=== PATIENT | female | born 1980 | race Caucasian/White ===

== ENCOUNTER → 2023-08-09 08:46 | Outpatient (BNVA) | payer OTHER, SELFPAY | PROVIDERS: PCP Internal Medicine; Visit Provider Physician Assistant Surgical ==

== ENCOUNTER 2023-09-13 15:52 | Outpatient (AMB) | payer OTHER, SELFPAY ==
[2023-09-13 08:29] VITALS: BMI 41.3
--- NOTE | 2023-09-13 08:29 | A.OFFVIS_ITS ---
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 She heard about our program from a friend. Her goal is to lose weight and achieve a healthy lifestyle. She reports first being concerned about her weight over the last 5 years, highest weight to date was 240. Current weight is 240.4 pounds with a BMI of 41.3. She has tried multiple methods of weight loss including fad diets without permanent results. She lives with her daughter. 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 She states that she is being laid off at the end of September and may lose her insurance She wakes at:?630 am, and goes to bed at?9-10 pm. Dinner is at 630 pm. Breakfast: cereal w skim milk or healthy choice meal AM snack: cheese stick w guacamole or humus Lunch: fruit PM snack: skip Dinner: out to dinner, grinder operator, sandwich After dinner: nachos Other snacks: ice cream Liquids: 60-80 oz Alcohol/marijuana/tobacco intake: 1-2 beers on the weekends, no cannabis, no tobacco Exercise: none, elliptical at home. no gym membership. GERD score: 0 PEÑA score: 3 ESS score: 2 QOL score: 48 PFSH Surgical History Hx of wisdom tooth extraction Hx of section Family History Paternal Aunt Thyroid cancer Non-Hodgkin lymphoma Paternal Grandmother Bladder cancer Social History Alcohol intake: current Alcohol intake frequency: other Alcohol type: beer and wine Comment: weekends Patient Tobacco Use Status: Never used Tobacco Physical Exam Vital Signs: BMI result Body Mass Index 41.3 Telehealth Telehealth Telehealth Platform: Telephone Location of provider rendering services: practice address Location of patient: address on file Patient Identification confirmed using: Name, : Yes Telehealth method: voice only Patient verbally consented to treatment: Yes Patient verbally consented to billing insurance company: Yes Patient informed of any privacy concerns related to visit: Yes Minutes spent on Phone/Video with Pt.: 30 Assessment & Plan Assessment & Plan (1) Morbid obesity: Code(s): E66.01 - Morbid (severe) obesity due to excess calories Category: Medical Plan: This is a?42 yo female who will start our SWL program to prepare for bariatric surgery.? Blood work, CXR, ECG, Abd US and UGI have been ordered. She is being scheduled for initial consultations. She will start SWL classes and watch the first three videos before her next appointment. 1. You have been given a paper with a link to our software aditya ([employer]) to generate an individualized nutritional and exercise plan specific for you. Please send me a screenshot of the plans you will generate Meal to include lean meat (beef, fish, pork, turkey, chicken), or sinhala yogurt, or egg whites, or beans with a salad with olive oil and fruits (berries, pears, apples, kiwi). Avoid salt, breads, potatoes, rice, pasta, desserts. 2. If you choose shakes, each shake would be drunk slowly, like coffee over a period of 2 hours. 3. If you choose bars, cut each bar in 4 pieces and eat each piece in 30min to make each bar last 2 hours. 4. I emphasized the importance of measuring accurately the food portion and measure it when serving the food on a plate 5. The meal portions include a specific number of forks of meat (protein) and salad. You always eat the meat portion but you can replace up to half of salad/vegetables portion with rice, potatoes or pasta, or a fruit ?if you like. The less you do it the better weight loss will be. 6. One full-size fork is what it can be scooped on the fork without falling aside and not what can be bit with the fork. Use regular forks like those you find in a typical restaurant. 7.? Please send me weight measurements from your body composition scale as soon as possible and then once a week. Always include your diet and exercise plan. The best time to weigh yourself is first thing in the morning after going to the bathroom. 8. The best choice for exercise would be elliptical at your home with a goal of burning approximately 300 calories per day or 2000 calories per week 9.?Goal is to lose at least 1.5-2lbs per week, and about 10% before surgery, which is about 24 pounds 10. Please follow the diet plan exactly without any change. If you don't like something about the plan or you feel hungry you need to communicate with me so I can help you revise the plan. My cell phone number to communicate with me by text is [phone] Patient is morbidly obese and is not considered stable at this time.?I spent a total of 70 minutes reviewing/updating records, examining the patient and counseling the patient on weight management as detailed above. Orders: Orders Insulin Today E66.01 - Morbid (severe) obesity due to excess calories Hemoglobin A1c Today E66.01 - Morbid (severe) obesity due to excess calories Lipid Panel Today E66.01 - Morbid (severe) obesity due to excess calories IRON PROFILE Today E66.01 - Morbid (severe) obesity due to excess calories Ferritin Today E66.01 - Morbid (severe) obesity due to excess calories US abdomen comp w elastography Today E66.01 - Morbid (severe) obesity due to excess calories Complete Blood Count Auto Diff Today E66.01 - Morbid (severe) obesity due to excess calories Comprehensive Met. Panel Today E66.01 - Morbid (severe) obesity due to excess calories Vitamin B12 and Folate Today E66.01 - Morbid (severe) obesity due to excess calories Zinc Today E66.01 - Morbid (severe) obesity due to excess calories C Reactive Protein Today E66.01 - Morbid (severe) obesity due to excess calories Vitamin B1 Today E66.01 - Morbid (severe) obesity due to excess calories Vitamin A Today E66.01 - Morbid (severe) obesity due to excess calories TSH reflex Free T4 Today E66.01 - Morbid (severe) obesity due to excess calories Vitamin D 25-OH Total Today E66.01 - Morbid (severe) obesity due to excess calories XR chest 2V Today E66.01 - Morbid (severe) obesity due to excess calories ECG 12 lead EKG Today E66.01 - Morbid (severe) obesity due to excess calories FL upper GI w air Today E66.01 - Morbid (severe) obesity due to excess calories Referrals Behavioral Health Referral E66.01 - Morbid (severe) obesity due to excess calories
== END 2023-09-13 17:01 | disposition home or self-care (01) ==
LOC: HO.HBS 15:52
PROVIDERS: PCP Internal Medicine; Visit Provider Physician Assistant Surgical
DX: E66.01 Morbid (severe) obesity due to excess calories (principal); Z68.41 Body mass index [BMI] 40.0-44.9, adult
CPT/HCPCS: 99205

== ENCOUNTER → 2023-09-13 15:52 | Outpatient (BNVA) | payer OTHER, SELFPAY | PROVIDERS: PCP Internal Medicine; Visit Provider Physician Assistant Surgical ==

== ENCOUNTER 2023-09-23 08:08 | Outpatient (REF) | payer OTHER, SELFPAY ==
--- NOTE | ~2023-09-23 | US_ITS ---
EXAMINATION: US COMPLETE ABDOMEN WITH LIVER ELASTOGRAPHY CLINICAL INFORMATION: Morbid obesity COMPARISON: None available. TECHNIQUE: Real-time imaging of the abdominal viscera. Noninvasive ultrasound liver fibrosis assessment is performed using Krystal ElastPQ point quantification shear wave elastography (pSWE) with a C5-2 MHz transducer. Multiple elastography samples are obtained. FINDINGS: PANCREAS: Visualized portions of pancreas are normal in appearance. ABDOMINAL AORTA: The proximal, middle, and distal aortic segments are normal in caliber. INFERIOR VENA CAVA: Visualized portions are normal. LIVER: The liver is normal in size. Liver contour is smooth. There is diffusely increased echogenicity of the liver. No intrahepatic biliary ductal dilatation identified. The right lobe measures 15 cm in length. The left lobe measures 9.7 cm in length. Portal flow is hepatopedal Shear wave liver elastography median stiffness is 1.8 m/s (reference: normal median stiffness is 1.3 m/s or less). IQR/median stiffness to assess sampling precision is 0.13 (reference: good quality data set is IQR/median stiffness of 0.15 or less). GALLBLADDER: Normal. The gallbladder is physiologically distended without evidence of stones, sludge, polyps, wall thickening or pericholecystic fluid. Negative sonographic Romero sign. COMMON BILE DUCT: Normal in caliber measuring 0.6 cm in diameter. RIGHT KIDNEY: Normal. No hydronephrosis. No renal calculi or focal parenchymal lesions. The kidney measures 11.5 cm in maximum dimension. LEFT KIDNEY: The left kidney is normal in size. Nodular mid pole cortex is nonspecific but most suggestive of a dromedary hump. The kidney measures 10.5 cm in maximum dimension. No renal calculi or hydronephrosis. SPLEEN: Normal. The spleen measures 9.6 cm in maximum dimension. FREE FLUID: None. US/US abdomen comp w elastography IMPRESSION: Liver elastography: Measurements are suggestive of compensated advanced chroniic liver disease but need further test for confirmation. REFERENCE: Society of Radiologists in Ultrasound Liver Stiffness Thresholds (2020): LIVER STIFFNESS THRESHOLDS: *Liver Stiffness equal or less than 1.3 m/s: High probability of being normal. *Liver Stiffness less than 1.7 m/s: In the absence of other known clinical signs, rules out compensated advanced chronic liver disease. *Liver Stiffness 1.7-2.1 m/s: Suggestive of compensated advanced chronic liver disease but need further test for confirmation. *Liver Stiffness over 2.1 m/s: Rules in compensated advanced chronic liver disease. *Liver Stiffness over 2.4 m/s: Suggestive of clinically significant portal hypertension. QUALITY OF DATA SET: *IQR/Median value equal or less than 0.15 implies a quality data set. *IQR/Median value over 0.15 implies a poor quality data set. SIGNIFICANT CHANGE FROM PRIOR EXAM: Significant change if liver stiffness measurement is 10% or greater from prior exam. OTHER CONSIDERATIONS: The stage of liver fibrosis may be overestimated in the setting of acute hepatitis, liver inflammation, elevated liver function tests, hepatic vascular congestion, obstructive cholestasis, non-fasting state, and infiltrative diseases such as amyloidosis and lymphoma. In some patients with NAFLD, the liver stiffness thresholds for compensated advanced chronic liver disease may be lower. In causes other than viral hepatitis and NAFLD, liver stiffness thresholds are not well established. Electronically signed by: Vijay Obrien MD 10/13/2023 07:57 AM EDT
--- NOTE | ~2023-09-23 | XR_ITS ---
EXAMINATION: XR CHEST CLINICAL INFORMATION: Preop chest x-ray for morbid obesity. COMPARISON: None available. TECHNIQUE: 2 views of the chest were obtained. FINDINGS: The cardiac, hilar, and mediastinal contours are normal. The lungs are clear bilaterally. No pleural effusions. Azygos fissure noted. No soft tissue or bony abnormalities. XR/XR chest 2V IMPRESSION: Normal chest. Electronically signed by: Marlo Shin MD 11/18/2023 04:36 PM EDT
--- NOTE | 2023-09-23 08:12 | ECG_ITS ---
Test Reason : E66.01 Blood Pressure : / mmHG Vent. Rate : 068 BPM Atrial Rate : 068 BPM P-R Int : 144 ms QRS Dur : 084 ms QT Int : 400 ms P-R-T Axes : 046 003 015 degrees QTc Int : 425 ms Normal sinus rhythm Normal ECG No previous ECGs available Referred By: David Hines Electronically Signed By:HUGO TOVAR MD
[2023-09-23 08:28] LABS: MANUAL DIFF FLAG NO
[2023-09-23 08:42] LABS: Basophils Absolute Auto 0.1 X10*3/uL (0.0-0.2); Basophils Percent Auto 0.6 % (0-2); Eosinophils Absolute Auto 0.1 X10*3/uL (0.0-0.4); Eosinophils Percent Auto 0.7 % (0-4); Hematocrit 40.9 % (37.0-47.0); Hemoglobin 13.4 g/dl (12.0-16.0); Imm Gran Abs Auto 0.04 X10*3/uL (0.00-0.03); Imm Gran Pct Auto 0.5 % (0.0-0.4); Lymphocytes Absolute Auto 2.1 X10*3/uL (1.2-4.9); Lymphocytes Percent Auto 25.4 % (20-40); Mean Corpuscular HGB Conc 32.8 g/dl (31.0-35.0); Mean Corpuscular Hemoglobin 30.1 pg (27.0-33.0); Mean Corpuscular Volume 91.9 fL (80.0-98.0); Mean Platelet Volume 10.9 fL (9.4-12.3); Monocytes Absolute Auto 0.7 X10*3/uL (0.1-1.2); Monocytes Percent Auto 7.8 % (2-11); Neutrophils Absolute Auto 5.5 x10*3/uL (2.0-8.3); Platelet Count 264 X10*3/uL (160-400); Red Blood Count 4.45 X10*6/uL (4.20-5.50); White Blood Count 8.4 X10*3/uL (4.8-10.8)
[2023-09-23 09:13] LABS: Estimated Average Glucose 97 mg/dL
[2023-09-23 09:32] LABS: Alanine Aminotransferase 32 U/L (0-31); Albumin Level 4.1 g/dL (3.5-5.0); Alkaline Phosphatase 75 U/L (39-117); Anion Gap 13 (12-20); Aspartate Amino Transferase 26 U/L (5-31); Bilirubin Total 0.6 mg/dL (0.0-1.0); Blood Urea Nitrogen 16 mg/dL (9-16); C Reactive Protein 3.08 mg/dL (< or = 0.50); Calcium 9.4 mg/dL (8.4-10.2); Carbon Dioxide 26 mmol/L (22-29); Chloride 106 mmol/L (96-108); Cholesterol 214 mg/dL (<200); Estimated Glomerular Filt Rate > 60; Glucose Random 93 mg/dL (60-115); HDL Cholesterol 78 mg/dL (>40); Iron 64 mcg/dL (30-160); LDL Cholesterol Calculated 108 mg/dL (<100); Percent Iron Saturation 18 % (15-50); Potassium 3.6 mmol/L (3.3-5.1); Sodium 141 mmol/L (135-145); Total Iron Binding Capacity 350 mcg/dL (228-428); Total Protein 7.5 g/dL (6.5-8.0); Triglycerides 141 mg/dL (<150); Unsaturated Iron Binding 286 ug/dL
[2023-09-23 10:14] LABS: Ferritin 143 ng/mL (10-250); Insulin 8 uU/mL (2-29); TSH reflex Free T4 3.14 uIU/mL (0.32-4.0); Vitamin D 25-OH Total 49.9 ng/mL (>30)
[2023-09-23 10:31] LABS: Folate 9.6 ng/mL (> or = 4.0); Vitamin B12 423 pg/mL (200-900)
[2023-09-27 16:04] LABS: Zinc 68 mcg/dL (60-130)
[2023-09-28 16:19] LABS: Vitamin A 48 mcg/dL (38-98)
[2023-09-30 13:24] LABS: Vitamin B1 10 nmol/L (8-30)
== END 2023-09-23 08:09 | disposition home or self-care (01) ==
LOC: HO.US 08:08
PROVIDERS: PCP Internal Medicine; Visit Provider Physician Assistant Surgical
DX: E66.01 Morbid (severe) obesity due to excess calories (principal); Z13.1 Encounter for screening for diabetes mellitus
CPT/HCPCS: 36415; 71046; 76700; 76981; 80053; 80061; 82306; 82607; 82728; 82746; 83036; 83525; 83540; 84425; 84443; 84590; 84630; 85025; 86140; 93005

== ENCOUNTER → 2023-09-23 08:12 | Outpatient (BNV) | payer OTHER, SELFPAY | PROVIDERS: PCP Internal Medicine; Visit Provider Internal Medicine Cardiovascular Disease | DX: E66.01 Morbid (severe) obesity due to excess calories (principal) | CPT/HCPCS: 93010 ==

== ENCOUNTER → 2023-09-23 08:29 | Outpatient (BNV) | payer OTHER, SELFPAY | PROVIDERS: PCP Internal Medicine; Visit Provider Radiology Diagnostic Radiology | DX: Z01.818 Encounter for other preprocedural examination (principal); E66.01 Morbid (severe) obesity due to excess calories | CPT/HCPCS: 71046 ==

== ENCOUNTER 2023-10-14 14:19 | Outpatient (AMB) | payer OTHER, SELFPAY ==
[2023-10-14 08:29] VITALS: BMI 40.4
--- NOTE | 2023-10-14 08:29 | A.OFFVIS_ITS ---
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 She was initially presenting to the [facility] on 08/09/2023 with a weight of 240.2 lb. Weight today is 235.6 lb with a BMI of 40.4. She has lost 4.6 lb or 1.9% total body weight loss. She states she is doing well. She is using the aditya Meal plan: premier protein rtd shake 1/2 7-9 shake 1/2 10-12 atkins bar1-3 another bar 4-6 meal 8 forks protein and 8 forks veg drinkin-48 oz Exercise plan: elliptical at home1-3 x per week [address] [facility] Surgical History Hx of wisdom tooth extraction Hx of section Family History Paternal Aunt Thyroid cancer Non-Hodgkin lymphoma Paternal Grandmother Bladder cancer Social History Alcohol intake: current Alcohol intake frequency: other Alcohol type: beer and wine Comment: weekends Patient Tobacco Use Status: Never used Tobacco Assessment & Plan Assessment & Plan (1) Morbid obesity: Code(s): E66.01 - Morbid (severe) obesity due to excess calories Category: Medical Plan: Making slow but steady progress. Patient has clearly identified areas that require improvement including her exercise consistency. She is following the meal plan without difficulty. We discussed strategies to improve her exercise consistency including using her elliptical Tuesday through Tuesday and then when she is staying at her boyfriend's house on the weekends incorporating an outdoor walking program tracking her calories with the use of the [employer] aditya. she states that she will attempt to make these changes. Encouraged to continue to text weekly with any questions or concerns. Follow-up in the office in approximately 4 weeks
== END 2023-10-14 14:20 | disposition home or self-care (01) ==
LOC: HO.HBS 14:19
PROVIDERS: PCP Internal Medicine; Visit Provider Physician Assistant Surgical
DX: E66.01 Morbid (severe) obesity due to excess calories (principal)
CPT/HCPCS: 99213

== ENCOUNTER → 2023-10-14 14:19 | Outpatient (BNVA) | payer OTHER, SELFPAY | PROVIDERS: PCP Internal Medicine; Visit Provider Physician Assistant Surgical ==

== ENCOUNTER 2023-11-23 08:32 | Outpatient (REF) | payer OTHER, SELFPAY ==
--- NOTE | ~2023-11-23 | FL_ITS ---
EXAMINATION: XR FLUOROSCOPY UPPER GI WITH AIR CLINICAL INFORMATION: Preoperative evaluation prior to bariatric surgery COMPARISON: None TECHNIQUE: Fluoroscopic air contrast upper GI examination was performed utilizing standard techniques with thin and thick barium and effervescent granules. Numerous spot images were obtained. FINDINGS: Dual and single contrast images of the esophagus demonstrate normal caliber, contour, and mucosal pattern. No evidence of stricture, mass, or ulcerations identified. Esophageal peristalsis is mildly disorganized. A very small type I hiatal hernia is present. Moderate gastroesophageal reflux is seen up to the midesophagus. Dual contrast and single contrast images of the stomach demonstrated normal contour and mucosal pattern without evidence of mass, ulceration, or other abnormality. Contrast freely passed into the gastric antrum and duodenal bulb without delay. Single and air-contrast images of the duodenal bulb demonstrate no abnormality. The duodenal sweep has a normal appearance, course, and mucosal fold appearance. The imaged proximal jejunum has a normal fold pattern and caliber. FLUOROSCOPY TIME: 3 minutes 20 seconds DOSE AREA PRODUCT: 2689 uGy-m2 (microgray-meter squared) FL/FL upper GI w air IMPRESSION: 1. Mildly disorganized esophageal peristalsis. 2. Very small type I hiatal hernia with moderate gastroesophageal reflux. This procedure was performed by Chicho Robertson PA-C, and supervised by Dr. Shin Electronically signed by: Marlo Shin MD 11/24/2023 12:48 PM EDT
== END 2023-11-23 08:33 | disposition home or self-care (01) ==
LOC: HO.XRAY 08:32
PROVIDERS: PCP Internal Medicine; Visit Provider Physician Assistant Surgical
DX: E66.01 Morbid (severe) obesity due to excess calories (principal)
CPT/HCPCS: 74246

== ENCOUNTER → 2023-11-23 08:34 | Outpatient (BNV) | payer OTHER, SELFPAY | PROVIDERS: PCP Internal Medicine; Visit Provider Radiology Diagnostic Radiology | DX: Z01.818 Encounter for other preprocedural examination (principal) | CPT/HCPCS: 74246 ==

== ENCOUNTER → 2023-11-23 13:27 | Outpatient (AMB) | payer OTHER, SELFPAY ==
--- NOTE | 2023-11-23 13:00 | A.OFFWM_ITS ---
Intake Intake Visit Reasons: VIDEO BH Intake Allergies No Known Allergies Allergy (Verified 08/09/23 09:47) PFSH Surgical History Hx of wisdom tooth extraction Hx of section Family History Paternal Aunt Thyroid cancer Non-Hodgkin lymphoma Paternal Grandmother Bladder cancer Social History Alcohol intake: current Alcohol intake frequency: other Alcohol type: beer and wine Comment: weekends Patient Tobacco Use Status: Never used Tobacco Behavioral Health Assessment Weight Management Therapy Therapy Notes Details PT is a years old F/M, who presents for a visit to complete BH assessment as part of surgical weight loss program. PT reports she has thought about surgery for a while, specially now her daughter is 7 and independent so she can focus more on herself. Today we covered part of assessment and patient will return on 12/12 to finish. Presenting Concerns Referral Source WMP-Provider. PT sees David Hines PA-C, started services on 09/13/23 Reason for referral Completion of behavioral health assessment as part of process for weight-loss surgery. Precipitating Event Obesity. Living Situation Current Living Situation Own At risk of losing current housing? No Satisfied with current living situation? Yes Comments Pt lives with her 7 y/o daughter and 2 dogs. Food/Weight/Diet Expectations of change Initial goal is to lose at least 1.5-2lbs per week, and about 10% before surgery, which is about 24 pounds. She hopes to Become mindful and take better care of herself. PT is implementing the following: Current meal plan: am shake, 2 bars, 1 meal (8F/8F) Exercise plan: Uses elliptical at home. Continue adjusting to meal plan on weekends. Usually does 2 meals on weekends. History/Relationship with food PT reports she doesn't have a bad relationship with food or uses food as a reward or for comfort. As a child she was never thought about portion control, it was more to eat what you are served and clear your place. Example of meals before starting the program: Breakfast: a banana or toast with peanut butter. [place] with avocado and everything seasoning. Lunch: take out or leftovers, example: 12inch tool grinder operator external. Dinner: chicken, rice, tacos. dessert: ice-cream Snacks: almonds, cheese sticks and wacamole Drinks/Liquids: coffee in the morning with sugar sometimes milk or cream. History/Relationship with weight Growing up she was never obese or skinny, and was always very comfortable with her weight. Exercise was never been a big part of her life, so this program has been a learning opportunity to adapt new habits and after the first month in the program now she has been consistent with exercise routine and meal plan. PT reports that when things get stressful she stops taking care of herself and in general she tends to lose weight very slowly. After her 7 years ago weight-loss has been harder harder, and in general her weight has fluctuated her whole life. In the last 10 years, the patient's Lowest weight was 177Lbs while doing WW, and highest 250Lbs after she gave . History/Relationship with dieting PT have done weight watchers before becoming a mom and went down to 177Lbs. Gym membership multiple times in her life. Circuit program Healthy aditya similar to WW Using Fitbit to keep up of her steps Multiple diets: Pierce Rivas (lost 7 Lbs in 2 months) Binge Eating0 Do you frequently eat large amounts of food in short periods of time, not feeling physically hungry? Yes Do you feel out of control when you eat a large amount of food in a short period of time? No Do you eat large amounts of food rapidly and typically alone? No Night Eating Do you wake up at least once during the night to eat? No If you wake up in the night, do you find that it is necessary to eat something in order to fall back asleep? No Do you have little or no appetite in the morning and feel very hungry in the evening, often overeating between dinner and when you go to bed? No Social History Family history and relationship Never . Single mother of 1 daughter. She has been in a relationship for about 2 months. She has a twin sister and on her early 40's she found her father and that she has 4 siblings on her dad's side. 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 Cultural/Ethnic information . 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 1. Little interest or pleasure in doing things: not at all 2. Feeling down, depressed, or hopeless: not at all 3. Trouble falling or staying asleep, or sleeping too much: not at all 4. Feeling tired or having little energy: not at all 5. Poor appetite or overeating: not at all 6. Feeling bad about yourself - or that you are a failure or have let yourself or your family down: not at all 7. Trouble concentrating on things, such as reading the newspaper or watching television: not at all 8. Moving or speaking so slowly that other people could have noticed. Or the opposite - being so fidgety or restless that you have been moving around a lot more than usual: not at all 9. Thoughts that you would be better off or of hurting yourself in some way: not at all Total score: 0 Depression Screening Interpretation: Negative (Scores from new PT pack. New one will be administered at next visit) Depression Screening Done: Yes Source: Developed by Drs. Remy Max, Norma Brunson, Carson Chavez and colleagues, with an educational debra from [employer]. Binge Eating Scale Group 1 A. I don't feel self-conscious about my wt. or body size when I'm with others. B. I feel concerned about how I look to others, but it normally does not make me fell disappointed with myself C. I do get self-conscious about my appearance and wt. which makes me feel disappointed in myself. D. I feel very self-conscious about my wt. and frequently I feel intense shame and disgust for myself. I try to avoid social contacts because of my self- consciousness. Response Group 1: B Group 2 A. I don't have any difficulty eating slowly in the proper manner. B. Although I seem to gobble down foods, I don't end up feeling stuffed because of eating to much. C. At times, I tend to eat quickly and then, I feel uncomfortably full afterwards. D. I have the habit of bolting down my food, without really chewing it. When this happens I usually feel uncomfortably stuffed because I've eaten to much. Response Group 2: A Group 3 A. I feel capable to control my eating urges when I want to. B. I feel like I have failed to control my eating more than the average person. C. I feel utterly helpless when it comes to feeling in control of my eating urges. D. Because I feel so helpless about controlling my eating I have become very desperate about trying to get control. Response Group 3: B Group 4 A. I don't have the habit of eating when I'm bored. B. I sometimes eat when I'm bored, but often I'm able to get busy and get my mind off food. C. I have a regular habit of eating when I'm bored, but occasionally, I can use some other activity to get my mind off eating. D. I have a strong habit of eating when I'm bored. Nothing seems to help me breath the habit. Response Group 4: A Group 5 A. I'm usually physically hungry when I eat something. B. Occasionally, I eat something on impulse even though I really am not hungry. C. I have the regular habit of eating foods, that I might not really enjoy, to satisfy a hungry feeling even though physically, I don't need the food. D. Although I'm not physically hungry, I get a hungry feeling in my mouth that only seems to be satisfied when I eat a food, like sandwich, that fills my mouth. Sometimes, when I eat the food to satisfy my mouth hunger, I then spit the food out so I won't gain weight. Response Group 5: B Group 6 A. I don't feel any guilt or self-hate after I overeat. B. After I overeat, occasionally I feel guilt or self-hate. C. Almost all the time I experience strong guilt or self-hate after I overeat. Response Group 6: A Group 7 A. I don't lose total control of my eating when dieting even after periods when I overeat. B. Sometimes when I eat a forbidden food on a diet, I feel like I blew it and eat even more. C. Frequently, I have the habit of saying to myself, I've blown it now, why not go all the way, when I overeat on a diet. When that happens I eat more. D. I have a regular habit of starting a strict diets for myself but I break the diets by going on an eating binge. My life seems to be either a feast or famine. Response Group 7: A Group 8 A. I rarely eat so much food that I feel uncomfortably stuffed afterwards. B. Usually about once a month, I each such a quantity of food, I end up feeling very stuffed. C. I have regular periods during the month when I eat large amounts of food, either at mealtime or at snacks. D. I eat so much food that I regularly feel quite uncomfortable after eating and sometimes a bit nauseous. Response Group 8: B Group 9 A. My level of calorie intake does not go up very high or go down very low on a regular basis. B. Sometimes after I overeat, I will try to reduce my caloric intake to almost nothing to compensate for the excess calories I've eaten. C. I have a regular habit of overeating during the night. It seems that my routine is not to be hungry in the morning but overeat in the evening. D. In my adult years, I have had week-long periods where I practically starve myself. This follows periods when I overeat. It seems I live a life of either feast or famine. Response Group 9: A Group 10 A. I usually am able to stop eating when I want to. I know when enough is enough. B. Every so often, I experience a compulsion to eat which I can't seem to control. C. Frequently, I experience strong urges to eat which I seem unable to control, but at other times I can control my eating urges. D. I feel incapable of controlling urges to eat. I have a fear of not being able to stop eating voluntarily. Response Group 10: A Group 11 A. I don't have any problem stopping eating when I feel full. B. I usually can stop eating when I feel full but occasionally overeat leaving me feeling uncomfortably stuffed. C. I have a problem stopping eating once I start and usually I feel uncomfortably stuffed after I eat a meal. D. Because I have a problem not being able to stop eating when I want, I sometimes have to induce vomiting to relieve my stuffed feeling. Response Group 11: B Group 12 A. I seem to eat just as much when I'm with others, Family social gatherings as when I'm by myself. B. Sometimes, when I'm with other persons, I don't eat as much as I want to eat because I'm self-conscious about my eating. C. Frequently, I eat only a small amount of food when others are present, because I'm very embarrassed about my eating. D. I feel so ashamed about overeating that I pick times to overeat when I know no one will see me. I feel like a closet eater. Response Group 12: A Group 13 A. I eat three meals a day with only an occasional between meal snack. B. I eat 3 meals a day, but I also normally snack between meals. C. When I am snacking heavily, I get in the habit of skipping regular meals. D. There are regular periods when I seem to be continually eating, with no planned meals. Response Group 13: B Group 14 A. I don't think much about trying to control unwanted eating urges. B. At least some of the time, I feel my thoughts are pre-occupied with trying to control my eating urges. C. I feel that frequently I spend much time thinking about how much I ate or about trying not to eat anymore. D. It seems to me that most of my waking hours are pre-occupied by thoughts about eating or not eating. I feel like I'm constantly struggling not to eat. Response Group 14: B Group 15 A. I don't think about food a great deal. B. I have strong craving for food but they last only for brief periods of time. C. I have days when I can't seem to think about anything else but food. D. Most of my days seem to be pre-occupied with thoughts about food. I feel like I live to eat. Response Group 15: B Group 16 A. I usually know whether or not I'm physically hungry. I take the right portion of food to satisfy me. B. Occasionally, I feel uncertain about knowing whether or not I'm physically hungry. A these times it's hard to know how much food I should take to satisfy me. C. Even though I might know how many calories I should eat, I don't have any i amrita what is a normal amount of food for me. Response Group 16: A Binge Eating Score: 8 Score less than 17 Minimal Risk Score between 18-26 Moderate Risk Score between 27-46 High Risk Assessment & Plan Assessment & Plan (1) Unspecified adjustment reaction: Code(s): F43.20 - Adjustment disorder, unspecified Plan PT will return on 12/13/23 at 10am, via Telehealth con continue assessment and PHQ-9 administered again. Telehealth Telehealth Telehealth Platform: [facility] Location of provider rendering services: other Location of patient: address on file Patient Identification confirmed using: Name, : Yes Telehealth method: video Patient verbally consented to treatment: Yes Patient verbally consented to billing insurance company: Yes Patient informed of any privacy concerns related to visit: Yes Minutes spent on Phone/Video with Pt.: 65 Coding Level of Care Code New Pt Tele Psy Diag Eval (01759) Patient Type New Diagnoses Unspecified adjustment reaction F43.20 Time Spent (min) 65 Comment Start time: 1:00pm, End time: 2:05pm
== END ==
PROVIDERS: PCP Internal Medicine; Visit Provider Counselor Mental Health
DX: F43.20 Adjustment disorder, unspecified (principal)
CPT/HCPCS: 90791

== ENCOUNTER 2023-11-29 10:09 | Day surgery (SDC) | payer OTHER, SELFPAY ==
--- NOTE | 2023-11-24 14:23 | HO.ANESPROP2 ---
Documented by User: Blanche Morales NP 11/24/23 14:23 HPI - Anesthesia Eval Consult details Narrative: 43yo F for Upper Endoscopy PMFSH Active Problems Active Problems: All Active Problems Morbid obesity (Acute) Family History Family History Paternal Aunt Thyroid cancer Non-Hodgkin lymphoma Paternal Grandmother Bladder cancer Surgical History Surgical History Hx of wisdom tooth extraction Hx of section Social History Social History Alcohol intake: current Alcohol intake frequency: holidays/special occasions only Alcohol type: beer and wine Comment: weekends Patient Tobacco Use Status: Never used Tobacco Have you been hit, kicked, punched, or otherwise hurt by someone within the past year? If so, by whom?: No Are you DNR?: No Advance Directives: No Advance Directives Information Provided: Yes Nutrition Risks: No Nutritional Risk Patient : No Meds Allergies Allergy/AdvReac Type Severity Reaction Status Date / Time No Known Allergies Allergy Verified 08/09/23 09:47 Home Medications ?Medication ?Instructions ?Recorded ?Confirmed ?Last Taken ?Type ferrous sulfate 325 mg (65 mg 325 mg PO DAILY 08/09/23 10/14/23 Unknown History iron) tablet (Feosol) norelgestromin 150 mcg-e.estradiol patch transdermal 08/09/23 10/14/23 Unknown History 35 mcg/24 hr weekly transderm patch (Xulane) Assessment and Plan Assessment Anesthesia Assessment: Chart Reviewed Documented by User: Jyothi Cordova MD 11/29/23 11:04 PMFSH Family History Family History Paternal Aunt Thyroid cancer Non-Hodgkin lymphoma Paternal Grandmother Bladder cancer Family history of problems with anesthesia: No Surgical History Surgical History Hx of wisdom tooth extraction Hx of section History of Problems with Anesthesia: No Social History Social History Alcohol intake: current Alcohol intake frequency: holidays/special occasions only Alcohol type: beer and wine Comment: weekends Patient Tobacco Use Status: Never used Tobacco Have you been hit, kicked, punched, or otherwise hurt by someone within the past year? If so, by whom?: No Are you DNR?: No Advance Directives: No Advance Directives Information Provided: Yes Nutrition Risks: No Nutritional Risk Patient : No Meds Allergies Allergy/AdvReac Type Severity Reaction Status Date / Time No Known Allergies Allergy Verified 08/09/23 09:47 Home Medications ?Medication ?Instructions ?Recorded ?Confirmed ?Last Taken ?Type ferrous sulfate 325 mg (65 mg 325 mg PO DAILY 08/09/23 10/14/23 Unknown History iron) tablet (Feosol) norelgestromin 150 mcg-e.estradiol patch transdermal 08/09/23 10/14/23 Unknown History 35 mcg/24 hr weekly transderm patch (Xulane) Exam Airway Mallampati Class: II TM Dist: >3cm Neck ROM: Full Heart: rrr Lungs: cta Assessment and Plan Final Anesthetic Review Family History of Problems with Anesthesia: No History of Problems with Anesthesia: No NPO: Yes ASA Class: II Final Preanesthetic Review: No Changes in Pt Med Stat, Meds/Allgs Chart Reviewed, Consent Obtained/Reviewed and Anes Risks/Benef Reviewed Patient Risk: Intermediate Procedure Risk: Low Anesthetic Plan Anesthetic Plan: MAC: Disposition: Standard PACU
[2023-11-29 10:18] VITALS: BP 139/83; PULSE 71; RESP 20; TEMP 36.9; O2SAT 98; BMI 40.2
[2023-11-29 10:29] LABS: UPreg QC Valid YES; Urine Pregnancy NEGATIVE (NEGATIVE)
[2023-11-29] MEDS: Lactated Ringers 1,000 ML 100 ML IVCONT (10:36)
--- NOTE | 2023-11-29 10:55 | MHC.SHP ---
Pre-Procedural Eval Section A - 24 Hr Update-Section A only Date of Service: 11/29/23 The patient is an INPATIENT: No The patient has been examined within 24 hours of the surgical procedure. The History & Physical has been completed within 30 days and I have reviewed it.: Yes Section B - Complete if H&P > 30 days Chief Complaint: Morbid (severe) obesity due to excess calories Relevant Family History (Specify if Yes): No Relevant Social History: None Present Medications: None Medical History: No relevant PMH History of Previous Operations: No relevant previous surgery Allergies: Allergies Allergy/AdvReac Type Severity Reaction Status Date / Time No Known Allergies Allergy Verified 08/09/23 09:47 Review of Systems Sugical H&P ROS: Negative: Constitution, Cardiovascular, Respiratory, Neurological, Psychiatric, Hem-Onc, Allergic/Immunologic, Gastrointestinal, Genitourinary, Musculoskeletal, Integumentary, Endocrine and Eyes/Ears/Nose/Throat Exam Surgical H&P Exam: Normal: HEENT, Normal: Heart, Normal: Lungs, Normal: Extremities, Normal: Abdomen, Normal: Skin and Normal: Neurological Plan Diagnosis/Plan: Unchanged (EGD to assess the stomach's anatomy. Risks of bleeding and perforation were discussed with the patient and she is in agreement with the plan) I have reviewed the history and physical and performed a pertinent physical examination on my patient. No changes have occurred unless specified. Time Spent With Patient Time: Total time managing care of this patient today ____ minutes.
--- NOTE | 2023-11-29 10:59 | P.BOP_ITS ---
Brief Operative Note Date of Service: 11/29/23 Pre-op diagnosis: Morbid obesity Post-op diagnosis: same Procedure: PROCEDURE DATE: 11/29/2023 PREOPERATIVE DIAGNOSIS: Morbid obesity POSTOPERATIVE DIAGNOSIS: ?Same as above. Patito endoscopy PROCEDURE: [id number] with biopsies Surgeon: Francois Lopez M.D.. Ph.D. Under Cutter: None ? Anesthesia: IV sedation Estimated blood loss: ?Minimal FINDINGS AND PROCEDURE: ? OPERATIVE INDICATIONS: ?The patient is a 43 year old female known to me who is interested in bariatric surgery. Based on this information I recommended an upper endoscopy to evaluate the stomach's anatomy. Risks and complications of the surgery were discussed with the patient in advance particularly the possibility of perforation or bleeding that may require surgical intervention. The patient understood the risks and was in agreement with the plan. ? PROCEDURE: After informed consent was obtained by the patient, the patient was ?transferred to the Operating Room and was placed in the supine position.? After successful induction of IV sedation, a mouth block was inserted and the patient was placed in the left lateral decubitus position. An upper endoscopy was performed next, the oropharynx and esophagus appeared within the normal limits. There was no hiatal hernia. The z-line was smooth. Two biopsies were obtained from the distal esophagus 2-3 cm proximal to the GE junction and two additional biopsies from the GE junction. The stomach was entered and it appeared to be of normal size. There was no gastritis. There was no stricture or ulcer. A biopsy was obtained from the gastric fundus and antrum. No significant bleeding was noted from any of the biopsy sites. Retroflexion of the scope revealed a normal GE junction. The scope was then advanced into the duodenum which appeared to be normal as well. At that point the duodenum ?and the stomach were decompressed and the scope was withdrawn from the patient's mouth. The patient extubated and was transferred in stable condition to the Recovery Room for further care. I was present and performed all steps of the procedure. There were no residents to assist with this case. Audie Lopez M.D., Ph.D. Surgeon: Miguel Lopez MD Anesthesia: MAC Was an Under Cutter used for this Procedure?: No Estimated blood loss (mL): 0 IV fluids (mL): 400 Urine output (mL): 0 (No [place] to record output) Pathology: other (1) antrum x1, 2) fundus x1, 3) GE junction x2, 4) distal esophagus x2) Condition: stable Disposition: PACU
[2023-11-29 11:53] VITALS: BP 117/99; PULSE 73; RESP 16; TEMP 36.6; O2SAT 99
[2023-11-29 12:08] VITALS: BP 133/71; PULSE 71; RESP 16; TEMP 36.2; O2SAT 96
== END 2023-11-29 12:42 | disposition home or self-care (01) ==
PROVIDERS: Nurse Practitioner; PCP Internal Medicine; Visit Provider Surgery
PROC: 0DJ08ZZ Inspection of Upper Intestinal Tract, Via Natural or Artificial Opening Endoscopic (ICD-10-PCS; CPT 43235; principal; 2023-11-29 12:20)
DX: E66.01 Morbid (severe) obesity due to excess calories (principal); Z68.41 Body mass index [BMI] 40.0-44.9, adult; Z79.899 Other long term (current) drug therapy; Z98.890 Other specified postprocedural states
CPT/HCPCS: 43239; 81025; 88305; 88313; 88342; J1100; J1596; J2003; J2250; J2704

== ENCOUNTER → 2023-11-29 10:09 | Outpatient (BNV) | payer OTHER, SELFPAY | PROVIDERS: PCP Internal Medicine; Visit Provider Surgery | DX: E66.813 Obesity, class 3 (principal); Z68.41 Body mass index [BMI] 40.0-44.9, adult | CPT/HCPCS: 43239 ==

== ENCOUNTER 2023-12-07 15:00 | Outpatient (AMB) | payer OTHER, SELFPAY ==
[2023-12-07 10:58] VITALS: BMI 38.9
--- NOTE | 2023-12-07 10:58 | MHC.OFFVISWM ---
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 She was initially presenting to the [facility] on 08/09/2023 with a weight of 240.2 lb. Weight today is 226.6 lb with a BMI of 38.9. She has lost 13.6 lb or 5.6% total body weight loss. She states she is doing well. She is using the aditya. Meal plan: premier protein rtd shake 11-1 atkins bar 3-5 meal 8 forks protein and 8 forks veg drinkin-48 oz Exercise plan: elliptical at home 6 x per week 400 adiel PFSH Surgical History Hx of wisdom tooth extraction Hx of section Family History Paternal Aunt Thyroid cancer Non-Hodgkin lymphoma Paternal Grandmother Bladder cancer Social History Alcohol intake: current Alcohol intake frequency: holidays/special occasions only Alcohol type: beer and wine Comment: weekends Patient Tobacco Use Status: Never used Tobacco Telehealth Telehealth Telehealth Platform: Telephone Location of provider rendering services: practice address Location of patient: address on file Patient Identification confirmed using: Name, : Yes Telehealth method: voice only Patient verbally consented to treatment: Yes Patient verbally consented to billing insurance company: Yes Patient informed of any privacy concerns related to visit: Yes Minutes spent on Phone/Video with Pt.: 20 Assessment & Plan Assessment & Plan (1) Obesity (BMI 30-39.9): Code(s): E66.9 - Obesity, unspecified Category: Medical Plan: Patient is making good progress. She may switch out her Atkins bar for a [place] yogurt if she wants she may add 1/2 bar. Discussed the importance of continuing exercise as she has been doing. Answered questions regarding surgery. She was enquiring about gastric bypass versus sleeve gastrectomy, thinking that she would prefer the gastric bypass but I encouraged her to discuss this with Dr. Lopez which she will do. We will have her return to the clinic in approximately 3 weeks with the understanding that if she continues to make progress, transfer to Dr. Lopez for continued preoperative planning.
== END 2023-12-07 15:31 | disposition home or self-care (01) ==
LOC: HO.HBS 15:24
PROVIDERS: PCP Internal Medicine; Visit Provider Physician Assistant Surgical
DX: E66.9 Obesity, unspecified (principal)
CPT/HCPCS: 99213; G2211

== ENCOUNTER → 2023-12-07 15:00 | Outpatient (BNVA) | payer OTHER, SELFPAY | PROVIDERS: PCP Internal Medicine; Visit Provider Physician Assistant Surgical ==

== ENCOUNTER → 2023-12-13 10:21 | Outpatient (BNVA) | payer OTHER, SELFPAY | PROVIDERS: PCP Internal Medicine; Visit Provider Counselor Mental Health ==

== ENCOUNTER → 2023-12-13 10:21 | Outpatient (AMB) | payer OTHER, SELFPAY ==
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
== END ==
LOC: HO.HBST 10:21
PROVIDERS: PCP Internal Medicine; Visit Provider Counselor Mental Health
DX: F43.20 Adjustment disorder, unspecified (principal)
CPT/HCPCS: 90837

== ENCOUNTER 2023-12-30 08:13 | Outpatient (AMB) | payer OTHER, SELFPAY ==
--- NOTE | 2023-12-30 12:46 | A.OFFVIS_ITS ---
VS Expanded 12/30/23 13:25 Height 5 ft 4 in Weight 221 lb 8 oz BMI 38.0 Body Fat % 49.5 Body Fat Mass 109.7 Fat Free Mass 112 Visceral Fat Rating 20 Body Water % 34.6 Body Water Mass 76.7 Basal Metabolic Rate/Score 1,453 Intake Visit Reasons: TV Follow Up SWL/Consult David Allergies No Known Allergies Allergy (Verified 12/30/23 12:46) Medication List - Last Reconciled 12/30/23 by Miguel Lopez MD ferrous sulfate (Feosol) 325 mg PO DAILY norelgestromin-ethin.estradiol 150-35 mcg/24 hr (Xulane) patches transdermal HPI HPI TV Follow Up SWL/Consult David: Details: Start time: 12.46pm, End time: 1.31pm ?I spent 40 minutes speaking with the patient on the phone plus an additional 5 minutes reviewing and updating records for a total of 45 minutes HPI Comments Details: Overall weight loss: 18.4lbs, or 7.66% TBWL Is doing one premade Premier, or Equate shake, 1.5 Atkins protein bar and one meal (8 forks of meat and 8 forks of salad or vegetables) on days Is doing one premade Premier, or Equate shake and two meals (6 forks of meat and 6 forks of salad or vegetables EACH) on weekends Exercise: is doing Elliptical 6 days per week for 400 calories PFSH Surgical History Hx of wisdom tooth extraction Hx of section Family History Paternal Aunt Thyroid cancer Non-Hodgkin lymphoma Paternal Grandmother Bladder cancer Social History Alcohol intake: current Alcohol intake frequency: holidays/special occasions only Alcohol type: beer and wine Comment: weekends Patient Tobacco Use Status: Never used Tobacco Telehealth Telehealth Telehealth Platform: Telephone Location of provider rendering services: practice address Location of patient: address on file Patient Identification confirmed using: Name, : Yes Telehealth method: voice only Patient verbally consented to treatment: Yes Patient verbally consented to billing insurance company: Yes Patient informed of any privacy concerns related to visit: Yes Minutes spent on Phone/Video with Pt.: 45 Assessment & Plan Assessment & Plan (1) Morbid obesity: Code(s): E66.01 - Morbid (severe) obesity due to excess calories Category: Medical Plan: 1. Plan for lap sleeve gastrectomy including upper GI endoscopy. All tests has been completed and reviewed and the patient is cleared for the surgery. ?If diaphragmatic or ventral hernias are present at time of surgery, these will be repaired laparoscopically as well. Risks and complications were discussed in detail including possible conversion to an open procedure, anastomotic leak, bleeding requiring transfusion, small bowel obstruction, , DVT and pulmonary embolism, cardiac, or pulmonary complications, as superintendent container terminal complications such as anastomotic ulcer, insufficient weight loss and vitamin deficiencies. I emphasized the importance of close follow-up, adherence to instructions and good communication. So far she has proven to be an excellent communicator and very compliant with all our directions accomplishing a great weight loss. I believe that she is an excellent candidate and she is ready. 2. The patient participated in a structured preoperative lifestyle intervention program supervised by a physician the 4 months preceding the surgical procedure. The lifestyle intervention included a structured nutritional plan with a specific daily protein intake goal, an exercise plan with a 2000 calorie burn weekly goal, weekly behavior modification guidance and completion of eight 1- hour online nutritional classes and passing successfully the corresponding quizzes. Adherence to preoperative care plan was demonstrated by completing an extensive preoperative work-up. Program participation was demonstrated by completing 4 visits with our medical team and by sharing weekly weight measurements weekly for 6 consecutive months via an approved body composition scale. Compliance to the lifestyle intervention was demonstrated by achieving a 18.4lbs weight-loss or 7.66% total body weight loss (TBWL). No medications were used to achieve this weight loss. In our published experience an over 7% preoperative TBWL, achieved by meeting the diet and exercise goals of our program improves surgical outcomes, reduces the potential for surgical complications, and predicts a statistically significant higher weight loss up to 6 years postoperatively. 3. Continue present nutritional and exercise plan 4. Send weight measurements weekly on Fridays
[2023-12-30 13:25] VITALS: BMI 38.0
--- OUTSIDE RECORDS SUMMARY | 2024-01-06 11:50 | XMS_ITS | Continuity of Care Document ---
Author Organization [facility] Primary Car e [place] Address [address] [place] [address]- Care Team Providers Care Soap Maker Name Role Phone Bonita GUAJARDO, Kayleigh Maria Primary Care Physician [phone] [facility] Date(s): 09/27/21 - 10/27/21 [facility] Care [place] [address] [place], [place] [address] Allergies, Adverse Reactions, Alerts No Known Allergies Immunizations Given and Recorded Vaccine Date Status Refusal Reason SARS-CoV-2 (COVID-19) mRNA BNT-162b2 vac 11/22/20 Recorded SARS-CoV-2 (COVID-19) mRNA BNT-162b2 vac 11/01/20 Recorded tetanus/diphtheria/pertussis, acel(Tdap) 1 08/11/16 Given 1Admin Note: VIS sheet given Medications Misc Rx Refills 0, Maintenance, VIT C, VIT D 400 IN WINTER, GUMMIE WITH BIOTIN, 08/24/21 16:40:00 EDT, Supply Start Date: 08/24/21 Status: Ordered traZODone 50 mg oral tablet 1, tablet, By Mouth, Daily at bedtime, # 90 tablet, Refills 1, Tot. Refills 0, Maintenance, 02/01/20 8:50:00 EST, Route to Pharmacy Electronically, [id number], 165.1, cm, 01/01/20 8:00:00 EST, Height Start Date: 02/01/20 Status: Ordered Tylenol 8 Hour Caplet = 1,300 mg, By Mouth, 0 Refills, Maintenance, 09/22/18 9:51:06 EDT Start Date: 09/22/18 Status: Ordered Problem List Condition Effective Dates Status Health Status Inform ant Obesity, Class III, BMI 40-4 9.9 (morbid obesity)(Confirmed) Active Elevated BP without diagnosi s of hypertension(Confirmed) Active Heart murmur(Confirmed) Active Ear infection(Confirmed) Active Encounter for weight management(Confirmed) Active Severe obesity(Confirmed) Active Tachycardia(Confirmed) Active Dry mouth(Confirmed) Active Social History Social History Type Response Smoking Status Never smoker entered on: 09/10/15 Sex Care Team Personnel Name: Kayleigh Mesa MD Address: [address] [place] [address]-
--- OUTSIDE RECORDS SUMMARY | 2024-01-06 11:50 | XMS_ITS | Continuity of Care Document ---
Author Organization [facility] Address [address] [place] [address]- Care Team Providers Care Shank Tapper Name Role Phone Kayleigh Mesa MD Primary Care Physician Encounter [facility] Date(s): 05/10/22 - 05/17/22 [facility] [address] [address]- Attending Physician: Not on Staff, Attending MD Referring Physician: Kayleigh Mesa MD Allergies, Adverse Reactions, Alerts No Known Allergies [...] EDT, Supply Start Date: 08/24/21 Status: Ordered Misc Rx Refills 0, Maintenance, takes supplemental iron for 1 week before menses, 04/07/22 15:02:00 EST, Supply Start Date: 04/07/22 Status: Ordered Tylenol 8 Hour Caplet = 1,300 mg, By Mouth, 0 Refills, Maintenance, 09/22/18 9:51:06 EDT Start Date: 09/22/18 Status: Ordered Xulane 150 mcg-35 mcg/24 hr transdermal film, extended release 1 patch, Topically, Every week, apply a new patch weekly for 3 weeks, remove for 1 week, then repeat cycle, # 9 each, 3 Refills, Maintenance, 05/10/22 9:19:00 EDT, [id number], Partial fill upon patient request if the prescription is f... Start Date: 05/10/22 Status: Ordered Problem List Condition Confirmation Course Effective Dates Status Health St atus Informant Obesity, Class III, BMI 40-49.9 (morbid obesity) Confirmed Active Elevated BP without diagnosis of hypertension Confirmed Active Heart murmur Confirmed Active History of COVID-19 Confirmed Active IBS (irritable bowel syndrome) Confirmed Active Heavy menses Confirmed Active Encounter for weight management Confirmed Active Severe obesity Confirmed Active Stress Confirmed Active Tachycardia Confirmed Active Dry mouth Confirmed Active Vital Signs Most recent to oldest [Reference Range]: 1 Height 165.1 cm (05/10/22 8:22 AM) Weight 110.3 kg (05/10/22 8:22 AM) Body Mass Index [18.5-24.99 kg/m2] 40.47 kg/m2 *>HHI* (05/10/22 8:22 AM) Blood Pressure [90-138/55-84 mm Hg] 104/ 60mm Hg (05/10/22 8:22 AM) Blood pressure sites Arm, left (05/10/22 8:22 AM) Dry Weight 110.3 kg (05/10/22 8:22 AM) Weight Obtained Via Standing scale (05/10/22 8:22 AM) Dry Weight Obtained Via Standing scale (05/10/22 8:22 AM) Social History Social History Type Response Smoking Status Never smoker entered on: 09/10/15 Sex Patient Care team information Care Team Personnel Name: Kayleigh Mesa MD Position: [facility] Primary Care Physician Member Role: PCP Address: Address: [address] [place] [address]- Name: Endy URIBE, Ama Position: [facility] OB RN Member Role: Primary Care Nurse Care Team Related Persons Name: LAMAR FIGUEROA Address: home [address] [facility] [address] [place] [address] Name: LINH FELTON Address: home [address] [place] [address] Name: JEREMI DELANEY Address: home [address] [place] [address] Name: REAL DELANEY Address: home [address] [place] [address]
--- OUTSIDE RECORDS SUMMARY | 2024-01-06 11:50 | XMS_ITS | Continuity of Care Document ---
Author Organization [facility] Address [address] [place] [address]- Care Team Providers Care Supervisor Decorating Name Role Phone Bonita GUAJARDO, Kayleigh Maria Primary Care Physician Encounter [facility] Date(s): 04/06/22 - 05/06/[address] [address] Allergies, Adverse Reactions, Alerts No Known Allergies [...] Date: 09/22/18 Status: Ordered Problem List Condition Confirmation Course Effective Dates Status Health St atus Informant Obesity, Class III, BMI 40-49.9 (morbid obesity) Confirmed Active Elevated BP without diagnosis of hypertension Confirmed Active Heart murmur Confirmed Active History of COVID-19 Confirmed Active IBS (irritable bowel syndrome) Confirmed Active Heavy menses Confirmed Active Encounter for weight management Confirmed Active Stress Confirmed Active Tachycardia Confirmed Active Dry mouth Confirmed Active Social History Social History Type Response Smoking Status Never smoker entered on: 09/10/15 Sex Patient Care team information Care Team Personnel Name: Kayleigh Mesa MD Position: [facility] Primary Care Physician Member Role: PCP Address: Address: [address] [place] [address]- Name: Ama Schumacher RN Position: [facility] OB RN Member Role: Primary Care Nurse Care Team Related Persons Name: LAMAR FIGUEROA Address: home [address] [facility] 3 [place] [address] Name: LINH FELTON Address: home [address] [place] [address] Name: JEREMI DELANEY Address: home [address] [place] [address] Name: REAL DELANEY Address: home [address] [place] [address]
--- OUTSIDE RECORDS SUMMARY | 2024-01-06 11:50 | XMS_ITS | Continuity of Care Document ---
Author Organization [facility] Primary Car e [place] Address [address] [place] [address]- Care Team Providers Care School Age Teacher Name Role Phone Kayleigh Mesa MD Primary Care Physician Encounter [facility] Date(s): 12/07/22 - 01/06/23 [facility] Care [place] [address] [place] [address]- Allergies, Adverse Reactions, Alerts No Known Allergies [...] each, 3 Refills, Maintenance, 05/10/22 9:19:00 EDT, [facility] #[id number], Partial fill upon patient request if the [...] Team Personnel Name: Kayleigh Mesa MD [facility] Phys[facility] - Primary Care Member Role: PCP Address: Address: [address] [place] [address]- Name: Ama Schumacher RN [facility] OB RN Member Role: Primary Care Nurse Care Team Related Persons Name: LAMAR FIGUEROA Address: [address] [address] Name: LINH FELTON Address: home [address] [place] [address] Name: JEREMI DELANEY Address: home [address] [place] [address] Name: REAL DELANEY Address: home [address] [place] [address]
--- OUTSIDE RECORDS SUMMARY | 2024-01-06 11:50 | XMS_ITS | Continuity of Care Document ---
Author Organization [facility] Address [address] [address]- Care Team Providers Care Elevator Constructor Hydraulic Name Role Phone Bonita GUAJARDO, Kayleigh Maria Primary Care Physician [id number] Date(s): 05/16/23 - 05/23/23 [facility] [address] [place], [place] [address] Attending Physician: Not on Staff, Attending MD Referring Physician: Pari Choi CNM Allergies, Adverse Reactions, Alerts No Known Allergies [...] for 1 week, then repeat cycle, # 3 patch, 14 Refills, Maintenance, 05/16/23 11:17:00 EDT, [facility] #[id number], Partial fill upon patient request if the prescription i... Start Date: 05/16/23 Status: Ordered Problem List Condition Confirmation Course [...] oldest [Reference Range]: 1 Height 165.1 cm (05/16/23 10:49 AM) Weight 111 kg (05/16/23 10:49 AM) Body Mass Index [18.5-24.99 kg/m2] 40.72 kg/m2 *>HHI* (05/16/23 10:49 AM) Blood Pressure [90-138/55-84 mm Hg] 122/ 74mm Hg (05/16/23 10:49 AM) Blood pressure sites Arm, right (05/16/23 10:49 AM) Dry Weight 111 kg (05/16/23 10:49 AM) Weight Obtained Via Standing scale (05/16/23 10:49 AM) Dry Weight Obtained Via Standing scale (05/16/23 10:49 AM) Social History Social History Type Response Smoking Status Never smoker entered on: 09/10/15 Sex Patient Care team information Care Team Personnel Name: Kayleigh Mesa MD Position: [facility] Physician - Primary Care Member Role: PCP Address: Address: [address] [place] [address]- Name: Endy URIBE, Ama Position: [facility] OB RN Member Role: Primary Care Nurse Care Team Related Persons Name: HENRY TIAGOVILMA Address: home [address] [facility] 3 [place] [address] Name: ILNH FELTON Address: home [address] [place] [address] Name: JEREMI DELANEY Address: home [address] [place] [address] Name: REAL DELANEY Address: home [address] [place] [address]
--- OUTSIDE RECORDS SUMMARY | 2024-01-06 11:50 | XMS_ITS | Continuity of Care Document ---
Author Organization [facility] Primary Car e [place] Address [address] [place] [address]- Care Team Providers Care Promotions Firm Accounts Manager Name Role Phone Rodrigo HUMMEL, Chuyita Campa Primary Care Physician [phone] Encounter [facility] [id number] Date(s): 01/02/20 - 02/01/20 [facility] Care [place] [address] [place], [place] [address] Allergies, Adverse Reactions, Alerts Substance Reaction Severity Status NKA Active Immunizations Given and Recorded Vaccine Date Status Refusal Reason tetanus/diphtheria/pertussis, acel(Tdap) 1 08/11/16 Given 1Admin Note: VIS sheet given Social History Social History Type Response Smoking Status Never smoker; Tobacc o user in household: No; Other: her baby's is a smoker but not in the house; entered on: 12/19/17 Sex
--- OUTSIDE RECORDS SUMMARY | 2024-01-06 11:50 | XMS_ITS | Continuity of Care Document ---
Author Organization [facility] Primary Car e [place] Address [address] [place] [address]- Care Team Providers Care Insurance Biller Name Role Phone Kayleigh Mesa MD Primary Care Physician Encounter [facility] Date(s): 11/30/22 - 12/30/22 [facility] Care [place] [address] [place] [address]- Allergies, Adverse Reactions, Alerts No Known Allergies [...] each, 3 Refills, Maintenance, 05/10/22 9:19:00 EDT, [facility] #[id number], Partial fill upon patient request if the [...] Team Personnel Name: Kayleigh Mesa MD Position: [facility] Physician - Primary Care Member Role: PCP Address: Address: [address] [place] [address]- Name: Ama Schumacher RN Position: [facility] OB RN Member Role: Primary Care Nurse Care Team Related Persons Name: LAMAR FIGUEROA Address: home [address] [address] Name: LINH FELTON Address: home [address] [place] [address] Name: JEREMI DELANEY Address: home [address] [place] [address] Name: REAL DELANEY Address: home [address] [place] [address]
--- OUTSIDE RECORDS SUMMARY | 2024-01-06 11:50 | XMS_ITS | Continuity of Care Document ---
Author Organization [facility] Primary [facility] e [place] Address [address] [place] [address]- Care Team Providers Care Automotive Exhaust Emissions Technician Name Role Phone Saurabh HUMMEL, Martha Clifford Primary Care Physician [phone] Encounter [facility] Date(s): 01/13/21 - 02/12/21 [facility] [address] [place], [place] [address] Allergies, Adverse Reactions, Alerts Substance Reaction Severity Status NKA Active Immunizations Given and Recorded Vaccine Date Status Refusal Reason SARS-CoV-2 (COVID-19) mRNA BNT-162b2 vac 11/22/20 Recorded SARS-CoV-2 (COVID-19) mRNA BNT-162b2 vac 11/01/20 Recorded tetanus/diphtheria/pertussis, acel(Tdap) 1 08/11/16 Given 1Admin Note: VIS sheet given Problem List Condition Effective Dates Status Health Status Inform ant Obesity, Class III, BMI 40-4 9.9 (morbid obesity)(Confirmed) Active Social History Social History Type Response Smoking Status Never smoker entered on: 09/10/15 Sex
--- OUTSIDE RECORDS SUMMARY | 2024-01-06 11:50 | XMS_ITS | Continuity of Care Document ---
Author Organization [facility] Primary [facility] e [place] Address [address] [place] [address]- Care Team Providers Care Commissioner Of Officials Name Role Phone Rodrigo HUMMEL, Chuyita Campa Primary Care Physician [phone] Encounter [facility] Date(s): 07/09/20 - 08/08/20 [facility] Care [place] [address] [place] [address]- Allergies, Adverse Reactions, Alerts Substance Reaction Severity [...]
--- OUTSIDE RECORDS SUMMARY | 2024-01-06 11:50 | XMS_ITS | Continuity of Care Document ---
Author Organization [facility] Primary Car e [place] Address [address] [place] [address]- Care Team Providers Care Technology Teacher Name Role Phone Saurabh HUMMEL, Martha Clifford Primary Care Physician Encounter [facility] Date(s): 03/11/21 - 04/10/21 [facility] [place] [address] [place], [place] [address] Allergies, Adverse Reactions, Alerts No Known Allergies Immunizations Given and Recorded Vaccine Date Status Refusal Reason SARS-CoV-2 (COVID-19) mRNA BNT-162b2 vac 11/22/20 Recorded SARS-CoV-2 (COVID-19) mRNA BNT-162b2 vac 11/01/20 Recorded tetanus/diphtheria/pertussis, acel(Tdap) 1 08/11/16 Given 1Admin Note: VIS sheet given Problem List Condition Effective Dates Status Health Status Inform ant Obesity, Class III, BMI 40-4 9.9 (morbid obesity)(Confirmed) Active Severe obesity(Confirmed) Active Social History Social History Type Response Smoking Status Never smoker entered on: 09/10/15 Sex
--- OUTSIDE RECORDS SUMMARY | 2024-01-06 11:50 | XMS_ITS | Continuity of Care Document ---
Author Organization [facility] Address [address] [facility]. [address] [place] [address]- Care Team Providers Care Criminal Justice Program Director Name Role Phone Bonita GUAJARDO, Kayleigh Maria Primary Care Physician Encounter [facility] Date(s): 05/16/23 - 06/15/23 [facility] [address] [place], [place] [address] Attending Physician: Admadrianne, Page Admitting Physician: Admtr, Page Referring Physician: Admtr, Ar8 Allergies, Adverse Reactions, Alerts No Known Allergies [...] patch, 14 Refills, Maintenance, 05/16/23 11:17:00 EDT, [id number], Partial fill upon patient request if the [...] Team Personnel Name: Kayleigh Mesa MD Position: [facility] Physician - Primary Care Member Role: PCP Address: Address: [address] [place] [address]- Name: Ama Schumacher RN Position: [facility] OB RN Member Role: Primary Care Nurse Care Team Related Persons Name: LAMAR FIGUEROA Address: home [address] [facility] 3 [place] [address] Name: LINH FELTON Address: home [address] [place] [address] Name: JEREMI DELANEY Address: home [address] [place] [address] Name: REAL DELANEY Address: home [address] [place] [address]
--- OUTSIDE RECORDS SUMMARY | 2024-01-06 11:50 | XMS_ITS | Continuity of Care Document ---
Author Organization [facility] Primary [facility] [place] Address [address] [place] [address]- Care Team Providers Care Pilot Steam Yacht Name Role Phone Bonita GUAJARDO, Kayleigh Maria Primary Care Physician [phone] Encounter [facility] Date(s): 08/25/23 - 09/24/23 [facility] [place] [address] [place] [address]- Allergies, Adverse Reactions, Alerts No Known Allergies Immunizations Given and Recorded Vaccine Date Status Refusal Reason SARS-CoV-2 (COVID-19) mRNA BNT-162b2 vac 11/22/20 Recorded SARS-CoV-2 (COVID-19) mRNA BNT-162b2 vac 11/01/20 Recorded tetanus/diphtheria/pertussis, acel(Tdap) 1 08/11/16 Given 1Admin Note: VIS sheet given Medications Misc Rx Refills 0, Maintenance, VIT C, VIT D 400 IN WINTER, GUMMIE WITH BIOTIN and COLLAGEN, 08/24/21 16:40:00 EDT, Supply Start Date: 08/24/21 [...] patch, 14 Refills, Maintenance, 05/16/23 11:17:00 EDT, [facility][id number], Partial fill upon patient request if the prescription i... Start Date: 05/16/23 Status: Ordered Problem List Condition Confirmation Course Effective Dates Status Health St atus Informant Obesity, Class III, BMI 40-49.9 (morbid obesity) Confirmed Active Elevated BP without diagnosis of hypertension Confirmed Active FHx: rheumatoid arthritis Confirmed Active Heart murmur Confirmed Active History of COVID-19 Confirmed Active Heavy menses Confirmed Active Encounter for health maintenance examination with abnormal findings Confirmed Active Stress Confirmed Active Tachycardia Confirmed Active Social History Social History Type Response Smoking Status Never smoker entered on: 09/10/15 Sex Patient Care team information Care Team Personnel Name: Kayleigh Mesa MD Position: [facility] Physician - Primary Care Member Role: PCP Address: Address: [address] [place] [address]- Name: Ama Schumacher RN Position: [facility] OB RN Member Role: Primary Care Nurse Care Team Related Persons Name: LAMAR FIGUEROA Address: home [address] [address] Name: LINH FELTON Address: home [address] [place] [address] Name: JEREMI DELANEY Address: home [address] [place] [address] Name: REAL DELANEY Address: home [address] [place] [address]
--- OUTSIDE RECORDS SUMMARY | 2024-01-06 11:50 | XMS_ITS | Continuity of Care Document ---
Author Organization [facility] Primary Car e [place] Address [address] [place] [address]- Care Team Providers Care Kitchen Mechanic Name Role Phone Kayleigh Mesa MD Primary Care Physician [phone] Encounter [facility] Date(s): 12/02/22 - 01/01/23 [facility] Care [place] [address] [place] [address]- Allergies, Adverse Reactions, Alerts No Known Allergies [...] each, 3 Refills, Maintenance, 05/10/22 9:19:00 EDT, [facility][id number], Partial fill upon patient request if the [...] Team Personnel Name: Kayleigh Mesa MD Position: [facility] Physician - Primary Care Member Role: PCP Address: Address: [address] [place] [address]- Name: Ama Schumacher RN Position: [facility] OB RN Member Role: Primary Care Nurse Care Team Related Persons Name: LAMAR FIGUEROA Address: home [address] [address] Name: LINH FELTON Address: home [address] [place] [address] Name: JEREMI DELANEY Address: home [address] [place] [address] Name: REAL DELANEY Address: home [address] [place] [address]
--- OUTSIDE RECORDS SUMMARY | 2024-01-06 11:50 | XMS_ITS | Continuity of Care Document ---
Author Organization [facility] Primary Car e [place] Address [address] [place] [address]- Care Team Providers Care Charge Master Specialist Name Role Phone Rodrigo HUMMEL, Chuyita Campa Primary Care Physician Encounter [facility] Date(s): 07/07/20 - 08/06/20 [facility] Care [place] [address] [place] [address]- Allergies, Adverse Reactions, Alerts Substance Reaction Severity [...]
--- OUTSIDE RECORDS SUMMARY | 2024-01-06 11:50 | XMS_ITS | Continuity of Care Document ---
Author Organization [facility] Primary Car e [place] Address [address] [place] [address]- Care Team Providers Care Patient Insurance Clerk Name Role Phone Sauarbh HUMMEL, Martha Clifford Primary Care Physician [phone] Encounter [facility] Date(s): 04/30/21 - 07/26/21 [facility] [place] [address] [place], [place] [address] Attending Physician: Graham Chapman MD, Deja Allergies, Adverse Reactions, Alerts No Known Allergies [...]
--- OUTSIDE RECORDS SUMMARY | 2024-01-06 11:50 | XMS_ITS | Continuity of Care Document ---
Author Organization [facility] Primary [facility] [place] Address [address] [place] [address]- Care Team Providers Care Joint Finisher Name Role Phone Kayleigh Mesa MD Primary Care Physician [id number] Date(s): 10/06/21 - 02/03/22 [facility] Care [place] [address] [place] [address]- Attending Physician: Kayleigh Mesa MD Allergies, Adverse Reactions, [...] 02/01/20 8:50:00 EST, Route to Pharmacy Electronically, [id number], 165.1, cm, 01/01/20 8:00:00 EST, Height Start [...] hypertension Confirmed Active Heart murmur Confirmed Active Ear infection Confirmed Active Encounter for weight management Confirmed Active Severe obesity Confirmed Active Tachycardia Confirmed Active Dry mouth Confirmed Active Social History Social History Type Response Smoking Status Never smoker entered on: 09/10/15 Sex Patient Care team information Care Team Personnel Name: Kayleigh Mesa MD Position: [facility] Primary Care Physician Member Role: PCP Address: Address: [address] [place] [address]- Name: Endy RN, Ama Position: [facility] OB RN Member Role: Primary Care Nurse Care Team Related Persons Name: LAMAR FIGUEROA Address: home [address] [address] Name: LINH FELTON Address: home [address] [place] [address] Name: JEREMI DELANEY Address: home [address] [place] [address] Name: REAL DELANEY Address: home [address] [place] [address]
--- OUTSIDE RECORDS SUMMARY | 2024-01-06 11:50 | XMS_ITS | Continuity of Care Document ---
Author Organization [facility] Primary Car e [place] Address [address] [place] [address]- Care Team Providers Care Washing Machine Loader Name Role Phone Bonita GUAJARDO, Kayleigh Maria Primary Care Physician [phone] Encounter [facility] Date(s): 10/07/21 - 11/06/21 [facility] [place] [address] [place], [place] [address] Allergies, Adverse Reactions, Alerts No Known Allergies [...] 02/01/20 8:50:00 EST, Route to Pharmacy Electronically, [facility] 99669, 165.1, cm, 01/01/20 8:00:00 EST, Height Start [...] Team Personnel Name: Kayleigh Mesa MD Address: [address] [place] [address]
--- OUTSIDE RECORDS SUMMARY | 2024-01-06 11:50 | XMS_ITS | Continuity of Care Document ---
Author Organization [facility] Primary Car e [place] Address [address] [place] [address]- Care Team Providers Care Financial Risk Manager Name Role Phone Bonita GUAJARDO, Kayleigh Maria Primary Care Physician [phone] Encounter [facility] Date(s): 10/16/21 - 11/15/21 [facility] Care [place] [address] [place], [place] [address] Allergies, Adverse Reactions, Alerts No Known Allergies [...] 02/01/20 8:50:00 EST, Route to Pharmacy Electronically, [id number], 165.1, cm, 01/01/20 8:00:00 EST, Height Start [...] on: 09/10/15 Sex Patient Care team information Personnel Name: Bonita GUAJARDO, Kayleigh Maria Address: Address: [address] [place] [id number]
--- OUTSIDE RECORDS SUMMARY | 2024-01-06 11:50 | XMS_ITS | Continuity of Care Document ---
Author Organization [facility] Address [address] [address]- Care Team Providers Care Clipper Automatic Name Role Phone Bonita GUAJARDO, Kayleigh Maria Primary Care Physician [phone] Encounter [facility] Date(s): 10/03/23 - 11/02/23 [facility] [address] [place], [place] [address] Attending Physician: AdmPage silver Admitting Physician: AdmtrPage Referring Physician: Admtr, Ar8 Allergies, Adverse Reactions, Alerts No Known Allergies Immunizations Given and Recorded Vaccine Date Status Refusal Reason SARS-CoV-2 (COVID-19) mRNA BNT-162b2 vac 11/22/20 Recorded SARS-CoV-2 (COVID-19) mRNA BNT-162b2 vac 11/01/20 Recorded tetanus/diphtheria/pertussis, acel(Tdap) 1 08/11/16 Given 1Admin Note: VIS sheet given Medications Estrace Vaginal Cream 0.1 mg/g See Instructions, 2 grams at night for two weeks, then 2 grams twice a week at night., # 42.5 Gm, 1Refills, Maintenance, 10/20/23 10:15:00 EDT, [facility][id number], Partial fill upon patientrequest if the prescription is for a schedule II o... Start Date: 10/20/23 Status: Ordered Misc Rx Refills 0, Maintenance, VIT C, [...] patch, 14 Refills, Maintenance, 05/16/23 11:17:00 EDT, [facility] #[id number], Partial fill upon patient request if the prescription i... Start Date: 05/16/23 Status: Ordered Problem List Condition Confirmation Course Effective Dates Status Health St atus Informant Obesity, Class III, BMI 40-49.9 (morbid obesity) Confirmed Active Elevated BP without diagnosis of hypertension Confirmed Active FHx: rheumatoid arthritis Confirmed Active Heart murmur Confirmed Active History of COVID-19 Confirmed Active Heavy menses Confirmed Active Obese class II Confirmed Active Encounter for health maintenance examination with abnormal findings Confirmed Active Stress Confirmed Active Tachycardia Confirmed Active Social History Social History Type Response Smoking Status Never smoker entered on: 09/10/15 Sex Patient Care team information Care Team Personnel Name: Kayleigh Mesa MD Position: [facility] Physician - Primary Care Member Role: PCP Address: Address: [address] [place] [address]- Name: Ama Schumacher RN Position: [facility] OB RN Member Role: Primary Care Nurse Care Team Related Persons Name: LAMAR FIGUEROA Address: home [address] [address] Name: LINH FELTON Address: home [address] [place] [address] Name: JEREMI DELANEY Address: home [address] [place] [address] Name: REAL DELANEY Address: home [address] [place] [address]
--- OUTSIDE RECORDS SUMMARY | 2024-01-06 11:50 | XMS_ITS | Continuity of Care Document ---
Author Organization [facility] Primary Car e [employer] Address [address] [place] [address]- Care Team Providers Care Dormitory Supervisor Name Role Phone Kayleigh Mesa MD Primary Care Physician [phone] Encounter [facility] Date(s): 04/13/22 - 05/13/22 [facility] Care [place] [address] [place] [address]- Allergies, Adverse Reactions, Alerts No Known Allergies [...] each, 3 Refills, Maintenance, 05/10/22 9:19:00 EDT, [facility] #[id number], Partial fill upon patient request if the [...] Team Personnel Name: Kayleigh Mesa MD Position: [facility] Primary Care Physician Member Role: PCP Address: Address: [address] [place] [address]- Name: Ama Schumacher RN Position: [facility] OB RN Member Role: Primary Care Nurse Care Team Related Persons Name: LAMAR FIGUEROA Address: home [address] [address] Name: LINH FELTON Address: home [address] [place] [address] Name: JEREMI DELANEY Address: home [address] [place] [address] Name: REAL DELANEY Address: home [address] [place] [address]
--- OUTSIDE RECORDS SUMMARY | 2024-01-06 11:50 | XMS_ITS | Continuity of Care Document ---
Author Organization [facility] n[facility] Address [address] [facility], [address] [place] [address]- Care Team Providers Care Russian Language Professor Name Role Phone Bonita GUAJARDO, Kayleigh Maria Primary Care Physician En[id number] Date(s): 03/18/22 - 04/17/22 [facility] Emeliarnold PastranaJimdos [facility] [address] [facility], 4th [place] [address]- Allergies, Adverse Reactions, Alerts No Known Allergies [...] Care team information Care Team Personnel Name: Bonita GUAJARDO, Kayleigh Maria Position: [facility] Primary Care Physician Member Role: PCP Address: Address: [address] [place] [address]- Name: Ama Schumacher RN Position: [facility] OB RN Member Role: Primary Care Nurse Care Team Related Persons Name: LAMAR FIGUEROA Address: home [address] [facility] 3 [place] [address] Name: LINH FELTON Address: home [address] [place] [address] Name: JEREMI DELANEY Address: home [address] [place] [address] Name: REAL DELANEY Address: home [address] [place] [address]
--- OUTSIDE RECORDS SUMMARY | 2024-01-06 11:51 | XMS_ITS | Continuity of Care Document ---
Author Organization [facility] Primary Car e [place] Address [address] [place] [address]- Care Team Providers Care Malt Specifications Control Assistant Name Role Phone Kayleigh Mesa MD Primary Care Physician Encounter [facility] Date(s): 04/13/22 - 05/13/22 [facility] Care [place] [address] [place] [address]- Allergies, Adverse Reactions, Alerts No Known Allergies [...] each, 3 Refills, Maintenance, 05/10/22 9:19:00 EDT, [facility] #[id number], Partial fill upon patient request if the [...] Team Personnel Name: Kayleigh Mesa MD Position: [facility] Primary Care Physician Member Role: PCP Address: Address: [address] [place] [address]- Name: Ama Schumacher RN Position: [facility] OB RN Member Role: Primary Care Nurse Care Team Related Persons Name: LAMAR FIGUEROA Address: home [address] [address] Name: LINH FELTON Address: home [address] [place] [address] Name: JEREMI DELANEY Address: home [address] [place] [address] Name: REAL DELANEY Address: home [address] [place] [address]
--- OUTSIDE RECORDS SUMMARY | 2024-01-06 11:51 | XMS_ITS | Continuity of Care Document ---
Author Organization [facility] Primary [facility] e [place] Address [address] [place] [address]- Care Team Providers Care Semaphore Operator Name Role Phone Bonita GUAJARDO, Kayleigh Maria Primary Care Physician Encounter [facility] Date(s): 09/23/23 - 10/23/23 [facility] Care [place] [address] [place] [address]- Allergies, Adverse Reactions, Alerts No Known Allergies [...] 42.5 Gm, 1Refills, Maintenance, 10/20/23 10:15:00 EDT, [id number], Partial fill upon patientrequest if the prescription [...] patch, 14 Refills, Maintenance, 05/16/23 11:17:00 EDT, [facility] #[id number], Partial fill upon patient request if the [...] Personnel Name: Bonita GUAJARDO, Kayleigh Maria Position: [facility] Physician - Primary Care Member Role: PCP Address: Address: [address] [place] [address]- Name: Ama Schumacher RN Position: [facility] OB RN Member Role: Primary Care Nurse Care Team Related Persons Name: LAMAR FIGUEROA Address: home [address] [address] Name: LINH FELTON Address: home [address] [place] [address] Name: JEREMI DELANEY Address: home [address] [place] [address] Name: REAL DELANEY Address: home [address] [place] [address]
--- OUTSIDE RECORDS SUMMARY | 2024-01-06 11:51 | XMS_ITS | Continuity of Care Document ---
Author Organization [facility] e [place] Address [address] [place] [address]- Care Team Providers Care Senior Quality Control Inspector Name Role Phone Bonita GUAJARDO, Kayleigh Maria Primary Care Physician [phone] [facility] Date(s): 08/12/23 - 09/11/23 [facility] 40 [place], [place] [address] Attending Physician: Page Petersen Admitting Physician: Page Petersen Referring Physician: AdmtrPage Allergies, Adverse Reactions, Alerts No Known Allergies [...] patch, 14 Refills, Maintenance, 05/16/23 11:17:00 EDT, [facility] #[id number], Partial fill upon patient request if the [...] Personnel Name: Bonita GUAJARDO, Kayleigh Maria Position: [facility] Physician - Primary Care Member Role: PCP Address: Address: [address] [place] [address]- Name: Ama Schumacher RN Position: [facility] OB RN Member Role: Primary Care Nurse Care Team Related Persons Name: LAMAR FIGUEROA Address: home [address] [facility] 3 [place] [address] Name: LINH FELTON Address: home [address] [place] [address] Name: JEREMI DELANEY Address: home [address] [place] [address] Name: REAL DELANEY Address: home [address] [place] [address]
--- OUTSIDE RECORDS SUMMARY | 2024-01-06 11:51 | XMS_ITS | Continuity of Care Document ---
Author Organization [facility] Primary Car e [place] Address [address] [place] [address]- Care Team Providers Care Soda Dry House Operator Name Role Phone Bonita GUAJARDO, Kayleigh Maria Primary Care Physician Encounter [facility] Date(s): 01/05/22 - 02/04/22 [facility] Care [place] [address] [place] [address]- Allergies, Adverse Reactions, Alerts No Known Allergies [...] EDT, Supply Start Date: 08/24/21 Status: Ordered Plan B One-Step 1.5 mg oral tablet 1.5 mg, 1, tablet, By Mouth, Once, # 1 tablet, Refills 0, Tot. Refills 0, Soft Stop, 02/04/22 12:11:00 EST, Route to Pharmacy Electronically, [facility] #[id number], Partial fill upon patient request if the prescription is for a schedule II opioi... Start Date: 02/04/22 Status: Ordered Tylenol 8 Hour Caplet = 1,300 mg, By Mouth, 0 Refills, Maintenance, 09/22/18 9:51:06 EDT Start Date: 09/22/18 Status: Ordered ulipristal 30 mg oral tablet 1 tablet = 30 mg, By Mouth, Once, # 1 tablet, 0 Refills, Soft Stop, 02/04/22 14:01:00 EST, Tablet, [id number], Partial fill upon patient request if the prescription is for a scheduleII opioid drug., 165.1, cm, 02/04/22 13:13:00 EST,... Start Date: 02/04/22 Status: Ordered Problem List Condition Confirmation Course Effective Dates Status H ealth Status Informant Obesity, Class III, BMI 40-49.9 (morbid obesity) Confirmed Active Elevated BP without diagnosis of hypertension Confirmed Active Emergency contraception Confirmed Active Heart murmur Confirmed Active History of COVID-19 Confirmed Active IBS (irritable bowel syndrome) Confirmed Active Encounter for weight management Confirmed Active Encounter for health maintenance examination Confirmed Active Severe obesity Confirmed Active Stress Confirmed Active Tachycardia Confirmed Active Dry mouth Confirmed Active Social History Social History Type Response Smoking Status Never smoker entered on: 09/10/15 Sex Patient Care team information Care Team Personnel Name: Kayleigh Mesa MD Position: [facility] Primary Care Physician Member Role: PCP Address: Address: [address] [place] [address]- Name: Endy URIBE, Ama Position: [facility] OB RN Member Role: Primary Care Nurse Care Team Related Persons Name: LAMAR FIGUEROA Address: home [address] [address] Name: LINH FELTON Address: home [address] [place] [address] Name: JEREMI DELANEY Address: home [address] [place] [address] Name: REAL DELANEY Address: home [address] [place] [address]
--- OUTSIDE RECORDS SUMMARY | 2024-01-06 11:51 | XMS_ITS | Continuity of Care Document ---
Author Organization [facility] Primary Car e [place] Address [address] [place] [address]- Care Team Providers Care Bath Mixer Name Role Phone Bonita GUAJARDO, Kayleigh Maria Primary Care Physician [phone] Encounter [facility] Date(s): 12/29/21 - 01/28/22 [facility] Care [place] [address] [place], [place] [address] Allergies, Adverse Reactions, Alerts No [...] 02/01/20 8:50:00 EST, Route to Pharmacy Electronically, [facility], 165.1, cm, 01/01/20 8:00:00 EST, Height Start [...] Team Personnel Name: Kayleigh Mesa MD Position: [facility] Primary Care Physician Member Role: PCP Address: Address: [address] [place] [address]- Name: Ama Schumacher RN Position: [facility] OB RN Member Role: Primary Care Nurse Care Team Related Persons Name: LAMAR FIGUEROA Address: home [address] [facility] [address] [place] [address] Name: LINH FELTON Address: home [address] [place] [address] Name: JEREMI DELANEY Address: home [address] [place] [address] Name: REAL DELANEY Address: home [address] [place] [address]
--- OUTSIDE RECORDS SUMMARY | 2024-01-06 11:51 | XMS_ITS | Continuity of Care Document ---
Author Organization [facility] Address [address] [facility], [address] [address]- Care Team Providers Care Geology Associate Name Role Phone Rodrigo HUMMEL, Chuyita Campa Primary Care Physician [phone] [id number] Date(s): 03/18/20 - 04/17/20 [facility] Emeli PastranaXfires [facility] [address] [facility], [address]th [place], [place] [address] Attending Physician: Page Petersen Admitting Physician: AdmPage silver Referring Physician: AdmtrPage Allergies, Adverse Reactions, Alerts Substance Reaction Severity [...]
--- OUTSIDE RECORDS SUMMARY | 2024-01-06 11:51 | XMS_ITS | Continuity of Care Document ---
Author Organization [facility] Primary Car e [place] Address [address] [place] [address]- Care Team Providers Care Inventory Control Analyst Name Role Phone Bonita GUAJARDO, Kayleigh Maria Primary Care Physician Encounter [facility] Date(s): 05/10/23 - 06/09/23 [facility] Care [place] [address] [place], [place] [address] Allergies, Adverse Reactions, Alerts [...] 14 Refills, Maintenance, 05/16/23 11:17:00 EDT, [id number], Partial fill upon patient request if the [...] Personnel Name: Bonita GUAJARDO, Kayleigh Maria Position: [facility] Physician - Primary Care Member Role: PCP Address: Address: [address] [place] [address]- Name: Ama Schumacher RN Position: [facility] OB RN Member Role: Primary Care Nurse Care Team Related Persons Name: LAMAR FIGUEROA Address: home [address] [address] Name: LINH FELTON Address: home [address] [place] [address] Name: JEREMI DELANEY Address: home [address] [place] [address] Name: REAL DELANEY Address: home [address] [address]
--- OUTSIDE RECORDS SUMMARY | 2024-01-06 11:51 | XMS_ITS | Continuity of Care Document ---
Author Organization [facility] Primary Car e [place] Address [address] [place] [address]- Care Team Providers Care Flap Curer Name Role Phone Bonita GUAJARDO, Kayleigh Maria Primary Care Physician Encounter [facility] Date(s): 02/04/22 - 03/06/22 [facility] Care [place] [address] [place], [place] [address] Allergies, Adverse Reactions, Alerts No Known [...] 02/04/22 12:11:00 EST, Route to Pharmacy Electronically, [facility] #[id number], Partial fill upon patient request if the prescription is for a schedule II opioi... Start Date: 02/04/22 Status: Ordered Tylenol 8 Hour Caplet = 1,300 mg, By Mouth, 0 Refills, Maintenance, 09/22/18 9:51:06 EDT Start Date: 09/22/18 Status: Ordered ulipristal 30 mg oral tablet 1 tablet = 30 mg, By Mouth, Once, # 1 tablet, 0 Refills, Soft Stop, 02/04/22 14:01:00 EST, Tablet, [facility] #[id number], Partial fill upon patient request if the [...] Team Personnel Name: Kayleigh Mesa MD Position: [facility] Primary Care Physician Member Role: PCP Address: Address: [address] [place] [address]- Name: Endy URIBE, Ama Position: [facility] OB RN Member Role: Primary Care Nurse Care Team Related Persons Name: LAMAR FIGUEROA Address: home [address] [address] Name: LINH FELTON Address: home [address] [place] [address] Name: JEREMI DELANEY Address: home [address] [place] [address] Name: REAL DELANEY Address: home [address] [place] [address]
--- OUTSIDE RECORDS SUMMARY | 2024-01-06 11:51 | XMS_ITS | Continuity of Care Document ---
Author Organization [facility] Primary [facility] e [place] Address [address] [place] [address]- Care Team Providers Care Datastage Consultant Name Role Phone Kayleigh Mesa MD Primary Care Physician Encounter [facility] [id number] Date(s): 03/01/23 - 06/29/23 [facility] Care [place] [address] [place] [address]- Attending Physician: Kayleigh Mesa MD Allergies, Adverse [...] patch, 14 Refills, Maintenance, 05/16/23 11:17:00 EDT, [facility] #[id number], Partial fill upon patient request if the [...] Personnel Name: Bonita GUAJARDO, Kayleigh Maria Position: [facility] Physician - Primary Care Member Role: PCP Address: Address: [address] [place] [address]- Name: Ama Schumacher RN Position: [facility] OB RN Member Role: Primary Care Nurse Care Team Related Persons Name: LAMAR FIGUEROA Address: home [address] [address] Name: LINH FELTON Address: home [address] [place] [address] Name: JEREMI DELANEY Address: home [address] [place] [address] Name: REAL DELANEY Address: home [address] [place] [address]
--- OUTSIDE RECORDS SUMMARY | 2024-01-06 11:51 | XMS_ITS | Continuity of Care Document ---
Author Organization [facility] Address [address] [address]- Care Team Providers Care Clerical Order Filler Name Role Phone Bonita GUAJARDO, Kayleigh Maria Primary Care Physician [phone] En[facility] Date(s): 05/10/22 - 06/09/22 [facility] [address] [address]- Attending Physician: Page Petersen Admitting Physician: Page Petersen Referring Physician: AdmPage silver Allergies, Adverse Reactions, Alerts No Known Allergies [...] each, 3 Refills, Maintenance, 05/10/22 9:19:00 EDT, [facility] #[id number], Partial fill upon patient request if the [...] Personnel Name: Bonita GUAJARDO, Kayleigh Maria Position: [facility] Primary Care Physician Member Role: PCP Address: Address: [address] [place] [address]- Name: Endy URIBE, Ama Position: [facility] OB RN Member Role: Primary Care Nurse Care Team Related Persons Name: LAMAR FIGUEROA Address: home [address] [facility] 3 [place] [address] Name: LINH FELTON Address: home [address] [place] [address] Name: JEREMI DELANEY Address: home [address] [place] [address] Name: REAL DELANEY Address: home [address] [place] [address]
--- OUTSIDE RECORDS SUMMARY | 2024-01-06 11:51 | XMS_ITS | Continuity of Care Document ---
Author Organization [facility] Primary Car e [place] Address [address] [place] [address]- Care Team Providers Care Quality Control Scientist Name Role Phone Bonita GUAJARDO, Kayleigh Maria Primary Care Physician Encounter [facility] Date(s): 11/28/21 - 12/28/21 [facility] Care [place] [address] [place] [address]- Allergies, Adverse Reactions, Alerts No Known Allergies [...] 02/01/20 8:50:00 EST, Route to Pharmacy Electronically, [facility], 165.1, cm, 01/01/20 8:00:00 EST, Height Start [...] Physician Member Role: PCP Address: Address: [address] [place] [address]- Name: Ama Schumacher RN Position: [facility] OB RN Member Role: Primary Care Nurse Care Team Related Persons Name: LAMAR FIGUEROA Address: home [address] [facility] 3 [place] [address] Name: LINH FELTON Address: home [address] [place] [address] Name: JEREMI DELANEY Address: home [address] [place] [address] Name: REAL DELANEY Address: home [address] [place] [address]
--- OUTSIDE RECORDS SUMMARY | 2024-01-06 11:51 | XMS_ITS | Continuity of Care Document ---
Author Organization [facility] Primary [facility] e [place] Address [address] [place] [address]- Care Team Providers Care Sheet Metal Engineer Name Role Phone Bonita GUAJARDO, Kayleigh Maria Primary Care Physician Encounter [facility] [id number] Date(s): 08/26/21 - 09/25/21 [facility] [address] [place] [address]- Allergies, Adverse Reactions, Alerts No Known Allergies [...]
--- OUTSIDE RECORDS SUMMARY | 2024-01-06 11:51 | XMS_ITS | Continuity of Care Document ---
Author Organization [facility] Address [address] [facility]. [address] [place] [address]- Care Team Providers Care Crane Follower Name Role Phone Kayleigh Mesa MD Primary Care Physician Encounter [facility] ACCT R [id number] Date(s): 10/03/23 - 10/10/23 [facility] [address] [place], [place] [address] Attending Physician: Not on Staff, Attending MD [...] patch, 14 Refills, Maintenance, 05/16/23 11:17:00 EDT, [id number], Partial fill upon patient request if the [...] Active Stress Confirmed Active Tachycardia Confirmed Active Vital Signs Most recent to oldest [Reference Range]: 1 Height 165.1 cm (10/03/23 9:53 AM) Weight 108.9 kg (10/03/23 9:53 AM) Body Mass Index [18.5-24.99 kg/m2] 39.95 kg/m2 *>HHI* (10/03/23 9:53 AM) Blood Pressure [90-138/55-84 mm Hg] 126/ 84mm Hg (10/03/23 9:53 AM) Blood pressure sites Arm, right (10/03/23 9:53 AM) Dry Weight 108.9 kg (10/03/23 9:53 AM) Weight Obtained Via Standing scale (10/03/23 9:53 AM) Dry Weight Obtained Via Standing scale (10/03/23 9:53 AM) Social History Social History Type Response Smoking Status Never smoker entered on: 09/10/15 Sex Note * Susan Gonzales: PERFORM Event Display: Patient Education/Instruction Authored Date: [id number] Ambulatory Adult Visit Summary [facility] [address] [place] [address] [id number] Name: LEILA FIGUEROA : 1980?? Visit: 10/03/2023 09:52?? Ambulatory Visit Instructions ?? Your Care Team Primary Care Provider Kayleigh Mesa MD? This Visit Provider Imani Tobar CNM Vitals Signs Systolic Blood Pressure: 126 mm Hg Height: 165.1 cm Diastolic Blood Pressure: 84 mm Hg Weight: 108.9 kg ?? Body Mass Index:??39.95 kg/m2??Critical ?? Body surface area: 2.23 Medications The list below reflects the information in our records and provided by you today along with any changes made during this visit. Please continue your medications until treatment is completed or stopped by your provider. If this is different from the information you have or there are other questions,please contact the prescribing provider. What How Much When Instructions New Sulfamethoxazole/ Trimethoprim (Bactrim DS 800 mg-160 mg oral tablet) 1 tab(s) Oral Twice a day Duration: 3 Days Pickup at [facility] #02052 Unchanged Acetaminophen (Tylenol 8 Hour Caplet) 1,300 Milligram Oral Unchanged Ethinyl Estradiol-Norelgestromin (Xulane 150 mcg-35 mcg/ 24 hr transdermal film, extendedrelease) 1 patch(es) Topically Every week apply a new patch weekly for 3 weeks, remove for 1 week, then repeat cycle ?? Unchanged Miscellaneous Rx (Misc Rx) takes supplemental iron for 1 week before menses ?? Unchanged Miscellaneous Rx (Misc Rx) VIT C, VIT D 400 IN WINTER, GUMMIE WITH BIOTIN and COLLAGEN ?? Pharmacy Information [facility] #[id number]: [address], [place] [id number] [phone] Medications and Immunizations Administered Medications Given During Visit No medications given during this visit.?? Allergies (NKA means No Known Allergies) NKA Common Emergency Awareness Tips IS IT A STROKE? Act FAST and Check for these signs: FACE Does the face look uneven? ARM Does one arm drift down? SPEECH Does their speech sound strange? TIME Call at any sign of stroke ?? Heart Attack Signs Chest discomfort: Most heart attacks involve discomfort in the center of the chest and lasts more than a few minutes, or goes away and comes back. It can feel like uncomfortable pressure, squeezing, fullness or pain. Discomfort in upper body: Symptoms can include pain or discomfort in one or both arms, back, neck, jaw or stomach. Shortness of breath: With or without discomfort. Other signs: Breaking out in a cold sweat, nausea, or lightheaded. Remember, MINUTES DO MATTER. If you experience any of these heart attack warning signs, call to get immediate medical attention! ?? Smoking can increase your chances of developing chronic health problems and can cause harmful effects to other family members in your house. If you smoke, you are strongly encouraged to quit. Please call [facility] [employer] Link at [phone] or 2-196-047-Fantom ([phone]) or log in to [email or web address] for referrals to smoking cessation programs. ?? The National Suicide Prevention Hotline is available 06/09 if you or someone you know needs to find a reason to keep living. By calling 8-582-466-MindSumo (5483) you'll be connected to a skilled, trained counselor at a crisis center in your area. [facility] [employer] Portal You can view and manage your care through the patient portal or by using a health care aditya of your choosing. [employer] is a website that allows you to securely view your medical information including your hospital discharge summary, office visit summaries, medications and follow-up visits. You can also request appointments, renew medications, and request access to your medical information using a health care aditya of your choosing, or just ask a question. You can enroll at [email or web address] or register during your next office visit. [facility], in keeping with [facility] guidance, no longer requires face masks for staff, patientsor visitors in most situations. Similiar to time spent indoors at other locations, there is the chance that you were exposed to repiratory viruses during your time with us (such as flu or COVID-19). If you develop symptoms concerning for a viral respiratory infection, please seek testing (and treatment if indicated) from your medical provider or home test kit. ?? Disclaimer: The information provided is of a general nature and is intended to be used in conjunction with the recommendations and advice of your health care practitioner. Every effort has been made to ensure that the information provided is accurate and complete at the time it is provided to you however, as your needs change, or, as new information becomes available, different or additional instructions may be required. ?? If you have questions, please consult with your primary care provider or pharmacist, as appropriate. This information is not intended to serve as substitution for assessment and evaluation by a qualified health care provider. If you do not have a primary care provider, you may find a [facility] provider by calling [facility] at [phone]. Patient Care team information Care Team Personnel Name: Bonita GUAJARDO, Kayleigh Maria Position: [facility] Physician - Primary Care Member Role: PCP Address: Address: [address] [place] [address]- Name: Endy URIBE, Ama Position: [facility] OB RN Member Role: Primary Care Nurse Care Team Related Persons Name: LAMAR FIGUEROA Address: home [address] [address] Name: LINH FELTON Address: home [address] [place] [address] Name: JEREMI DELANEY Address: home [address] [place] [address] Name: REAL DELANEY Address: home [address] [place] [address]
--- OUTSIDE RECORDS SUMMARY | 2024-01-06 11:51 | XMS_ITS | Continuity of Care Document ---
Author Organization [facility] Primary [facility] [place] Address [address] [place] [address]- Care Team Providers Care Partner Integration Planner Name Role Phone Bonita GUAJARDO, Kayleigh Maria Primary Care Physician Encounter [facility] Date(s): 10/26/21 - 11/25/21 [facility] [place] [address] [place], [place] [address] Allergies, Adverse Reactions, Alerts No Known Allergies [...] 02/01/20 8:50:00 EST, Route to Pharmacy Electronically, [facility] [id number], 165.1, cm, 01/01/20 8:00:00 EST, Height Start [...] Name: Bonita GUAJARDO, Kayleigh Maria Address: Address: [address] [place] [address]
--- OUTSIDE RECORDS SUMMARY | 2024-01-06 11:51 | XMS_ITS | Continuity of Care Document ---
Author Organization [facility] Address [address] [address]- Care Team Providers Care Bus Dispatcher Interstate Name Role Phone Bonita GUAJARDO, Kayleigh Maria Primary Care Physician Encounter [facility] ACCT R [id number] Date(s): 09/02/23 - 10/02/23 [facility] [address] [place] [address]- Allergies, Adverse Reactions, Alerts No Known Allergies [...] patch, 14 Refills, Maintenance, 05/16/23 11:17:00 EDT, [facility][id number], Partial fill upon patient request if the [...] Personnel Name: Bonita GUAJARDO, Kayleigh Maria Position: [facility] Physician - Primary Care Member Role: PCP Address: Address: [address] [place] [address]- Name: Endy URIBE, Ama Position: [facility] OB RN Member Role: Primary Care Nurse Care Team Related Persons Name: LAMAR FIGUEROA Address: home [address] [address] Name: LINH FELTON Address: home [address] [place] [address] Name: JEREMI DELANEY Address: home [address] [place] [address] Name: REAL DELANEY Address: home [address] [place] [address]
--- OUTSIDE RECORDS SUMMARY | 2024-01-06 11:51 | XMS_ITS | Continuity of Care Document ---
Author Organization [facility] Address [address] [place] [address]- Care Team Providers Care Net Software Developer Name Role Phone Bonita GUAJARDO, Kayleigh Maria Primary Care Physician [phone] [id number] 10/06[facility]23 - 11/05/23 [facility] [address] [place] [address]- Allergies, Adverse Reactions, Alerts No Known Allergies [...] 42.5 Gm, 1Refills, Maintenance, 10/20/23 10:15:00 EDT, [id number], Partial fill upon patientrequest if the prescription [...] patch, 14 Refills, Maintenance, 05/16/23 11:17:00 EDT, [facility] #[id number], Partial fill upon patient request if the [...] Team Personnel Name: Kayleigh Mesa MD Position: [facility] Physician - Primary Care Member Role: PCP Address: Address: [address] [place] [address]- Name: Ama Schumacher RN Position: [facility] OB RN Member Role: Primary Care Nurse Care Team Related Persons Name: LAMAR FIGUEROA Address: home [address] [address] Name: LINH FELTON Address: home [address] [place] [address] Name: JEREMI DELANEY Address: home [address] [place] [address] Name: REAL DELANEY Address: home [address] [place] [address]
--- OUTSIDE RECORDS SUMMARY | 2024-01-06 11:51 | XMS_ITS | Continuity of Care Document ---
Author Organization [facility] Primary [facility] [place] Address [address] [place] [address]- Care Team Providers Care Grinding Wheel Inspector Name Role Phone Bonita GUAJARDO, Kayleigh Maria Primary Care Physician [phone] Encounter [facility] Date(s): 04/06/22 - 05/06/22 [facility] Care [place] [address] [place] [address]- Allergies, Adverse Reactions, Alerts No Known Allergies [...] Team Personnel Name: Kayleigh Mesa MD Position: [facility] Primary Care Physician Member Role: PCP Address: Address: [address] [place] [address]- Name: Ama Schumacher RN Position: [facility] OB RN Member Role: Primary Care Nurse Care Team Related Persons Name: LAMAR FIGUEROA Address: home [address] [address] Name: LINH FELTON Address: home [address] [place] [address] Name: JEREMI DELANEY Address: home [address] [place] [address] Name: REAL DELANEY Address: home [address] [place] [address]
--- OUTSIDE RECORDS SUMMARY | 2024-01-06 11:51 | XMS_ITS | Continuity of Care Document ---
Author Organization [facility] Primary [facility] [place] Address [address] [place] [address]- Care Team Providers Care Nuisance Animal Damage Control Agent Name Role Phone Bonita GUAJARDO, Kayleigh Maria Primary Care Physician En[facility] Date(s): 10/21/21 - 11/20/21 [facility] [place] [address] [place], [place] [address] Allergies, Adverse Reactions, Alerts No Known [...] 02/01/20 8:50:00 EST, Route to Pharmacy Electronically, [facility] 11868, 165.1, cm, 01/01/20 8:00:00 EST, Height Start [...] Name: Bonita GUAJARDO, Kayleigh Maria Address: Address: [address] [place] [address]
--- OUTSIDE RECORDS SUMMARY | 2024-01-06 11:51 | XMS_ITS | Continuity of Care Document ---
Author Organization [facility] Address [address] [facility], [address] [place] [address]- Care Team Providers Care Green Building Materials Distributor Name Role Phone Rodrigo HUMMEL, Chuyita Campa Primary Care Physician En[facility] Date(s): 03/18/20 - 03/25/20 [facility] [address] [facility], [address] [place] [address]- Attending Physician: Alena Manzanares MD Referring Physician: Chuyita Wallace NP Allergies, Adverse Reactions, Alerts Substance Reaction Severity Status NKA Active Immunizations Given and Recorded Vaccine Date Status Refusal Reason tetanus/diphtheria/pertussis, acel(Tdap) 1 08/11/16 Given 1Admin Note: VIS sheet given Medications No Known Medications Vital Signs Most recent to oldest [Reference Range]: 1 Height 165.1 cm (03/18/20 9:10 AM) Weight 110.3 kg (03/18/20 9:10 AM) Pulse Rate [55-90 bpm] 96 bpm *H* (03/18/20 9:10 AM) Body Mass Index [18.5-24.99] 40.47 *>HHI* (03/18/20 9:10 AM) Blood Pressure [90-138/55-84 mm Hg] 133/ 86mm Hg (03/18/20 9:10 AM) Blood pressure sites Arm, right (03/18/20 9:10 AM) Dry Weight 110.3 kg (03/18/20 9:10 AM) Weight Obtained Via Standing scale (03/18/20 9:10 AM) Dry Weight Obtained Via Standing scale (03/18/20 9:10 AM) Social History Social History Type Response Smoking Status Never smoker; Tobacc o user in household: No; Other: her baby's is a smoker but not in the house; entered on: 12/19/17 Sex
--- OUTSIDE RECORDS SUMMARY | 2024-01-06 11:51 | XMS_ITS | Continuity of Care Document ---
Author Organization [facility] Address [address] [place] [address]- Care Team Providers Care Area Loss Prevention Manager Name Role Phone Bonita GUAJARDO, Kayleigh Maria Primary Care Physician [id number] 10/20/23 - 11/19/23 [facility] [address] [place] [address]- Allergies, Adverse Reactions, Alerts No Known Allergies [...] 42.5 Gm, 1Refills, Maintenance, 10/20/23 10:15:00 EDT, [id number], Partial fill upon patientrequest if the prescription [...] patch, 14 Refills, Maintenance, 05/16/23 11:17:00 EDT, [facility] #[id number], Partial fill upon patient request if the [...] Team Personnel Name: Kayleigh Mesa MD Position: [facility] Physician - Primary Care Member Role: PCP Address: Address: [address] [place] [address]- Name: Ama Schumacher RN Position: [facility] OB RN Member Role: Primary Care Nurse Care Team Related Persons Name: LAMAR FIGUEROA Address: home [address] [address] Name: LINH FELTON Address: home [address] [place] [address] Name: JEREMI DELANEY Address: home [address] [place] [address] Name: REAL DELANEY Address: home [address] [place] [address]
--- OUTSIDE RECORDS SUMMARY | 2024-01-06 11:51 | XMS_ITS | Continuity of Care Document ---
Author Organization [facility] Primary Car e [place] Address [address] [place] [address]- Care Team Providers Care Knife Cutter Name Role Phone Saurabh HUMMEL, Martha Clifford Primary Care Physician Encounter [facility] Date(s): 03/12/21 - 04/11/21 [facility] [place] [address] [place] [address]- Allergies, Adverse Reactions, Alerts No Known Allergies [...]
--- OUTSIDE RECORDS SUMMARY | 2024-01-06 11:51 | XMS_ITS | Continuity of Care Document ---
Author Organization [facility] Primary Car [facility] [place] Address [address] [place] [address]- Care Team Providers Care Director Stage Name Role Phone Bonita GUAJARDO, Kayeligh Maria Primary Care Physician [phone] Encounter [facility] Date(s): 01/04/22 - 02/03/22 [facility] [place] [address] [place] [address]- Allergies, Adverse Reactions, Alerts No Known Allergies [...] 02/01/20 8:50:00 EST, Route to Pharmacy Electronically, [facility] 27727, 165.1, cm, 01/01/20 8:00:00 EST, Height Start [...] Team Personnel Name: Kayleigh Mesa MD Position: [facility] Primary Care Physician Member Role: PCP Address: Address: [address] [place] [address]- Name: Ama Schumacher RN Position: [facility] OB RN Member Role: Primary Care Nurse Care Team Related Persons Name: LAMAR FIGUEROA Address: home [address] [facility] [address] [place] [address] Name: LINH FELTON Address: home [address] [place] [address] Name: JEREMI DELANEY Address: home [address] [place] [address] Name: REAL DELANEY Address: home [address] [place] [address]
--- OUTSIDE RECORDS SUMMARY | 2024-01-06 11:51 | XMS_ITS | Continuity of Care Document ---
Author Organization [facility] Primary [facility] [place] Address [address] [place] [address]- Care Team Providers Care Brim Welt Sewing Machine Operator Name Role Phone Kayleigh Mesa MD Primary Care Physician En[facility] [id number] Date(s): 06/28/23 - 09/07/23 [facility] [address] [place] [address]- Attending Physician: Kayleigh Mesa MD Allergies, Adverse [...] patch, 14 Refills, Maintenance, 05/16/23 11:17:00 EDT, [facility] #[id number], Partial fill upon patient request if the [...] Team Personnel Name: Kayleigh Mesa MD Position: [facility] Physician - Primary Care Member Role: PCP Address: Address: [address] [place] [address]- Name: Ama Shcumacher RN Position: [facility] OB RN Member Role: Primary Care Nurse Care Team Related Persons Name: LAMAR FIGUEROA Address: home [address] [facility] 3 [place] [address] Name: LINH FELTON Address: home [address] [place] [address] Name: JEREMI DELANEY Address: home [address] [place] [address] Name: REAL DELANEY Address: home [address] [place] [address]
--- OUTSIDE RECORDS SUMMARY | 2024-01-06 11:51 | XMS_ITS | Continuity of Care Document ---
Author Organization [facility] Primary [facility] [place] Address [address] [place] [address]- Care Team Providers Care Ironworker Wire Fence Erector Name Role Phone Bonita GUAJARDO, Kayleigh Maria Primary Care Physician Encounter [facility] Date(s): 04/07/22 - 05/07/22 [facility] [place] [address] [place] [address]- Attending Physician: Admadrianne, Elian8 Admitting Physician: [facility]trPage Referring Physician: Admtr, Ar8 [...] Team Personnel Name: Kayleigh Mesa MD Position: [facility] Primary Care Physician Member Role: PCP Address: Address: [address] [place] [address]- Name: Ama Schumacher RN Position: [facility] OB RN Member Role: Primary Care Nurse Care Team Related Persons Name: LAMAR FIGUEROA Address: home [address] [facility] [address] [place] [address] Name: LINH FELTON Address: home [address] [place] [address] Name: JEREMI DELANEY Address: home [address] [place] [address] Name: REAL DELANEY Address: home [address] [place] [address]
--- OUTSIDE RECORDS SUMMARY | 2024-01-06 11:52 | XMS_ITS | Continuity of Care Document ---
Author Organization [facility] Address [address] [address]- Care Team Providers Care Applications Consultant Name Role Phone Bonita GUAJARDO, Kayleigh Maria Primary [id number] Date(s): 09/06/23 - 10/06/23 [facility] and [address] [address]- Allergies, Adverse Reactions, Alerts No Known Allergies [...] 9:51:06 EDT Start Date: 09/22/18 Status: Ordered Vandazole 0.75% vaginal gel with applicator 1 applicator, Vaginally, Daily at bedtime, for 5 days, # 70 Gm, 0 Refills, Acute 10/10/23 15:05:00 EDT, 10/05/23 15:05:00 EDT, Gel, [facility] #[id number], Partial fill upon patient request if the prescription is for a schedule II opioid drug., 1... Start Date: 10/05/23 Stop Date: 10/10/23 Status: Ordered Xulane 150 mcg-35 mcg/24 hr transdermal film, extended release 1 patch, Topically, Every week, apply a new patch weekly for 3 weeks, remove for 1 week, then repeat cycle, # 3 patch, 14 Refills, Maintenance, 05/16/23 11:17:00 EDT, [facility] #[id number], Partial fill upon patient request if the [...] Team Personnel Name: Kayleigh Mesa MD Position: [facility] Physician - Primary Care Member Role: PCP Address: Address: [address] [place] [address]- Name: Ama Schumacher RN Position: [facility] OB RN Member Role: Primary Care Nurse Care Team Related Persons Name: LAMAR FIGUEROA Address: home [address] [address] Name: LINH FELTON Address: home [address] [place] [address] Name: JEREMI DELANEY Address: home [address] [place] [address] Name: REAL DELANEY Address: home [address] [place] [address]
--- OUTSIDE RECORDS SUMMARY | 2024-01-06 11:52 | XMS_ITS | Continuity of Care Document ---
Author Organization [facility] Primary Car e [place] Address [address] [place] [address]- Care Team Providers Care Aging Department Supervisor Name Role Phone Saurabh HUMMEL, Martha Clifford Primary Care Physician [phone] Encounter [facility] Date(s): 02/23/21 - 03/25/21 [facility] [place] [address] [place], [place] [address] Allergies, Adverse Reactions, Alerts No [...]
--- OUTSIDE RECORDS SUMMARY | 2024-01-06 11:52 | XMS_ITS | Continuity of Care Document ---
Author Organization [facility] Primary [facility] [place] Address [address] [place] [address]- Care Team Providers Care Composite Bond Technician Name Role Phone Bonita GUAJARDO, Kayleigh Maria Primary Care Physician [phone] Encounter [facility] Date(s): 08/19/23 - 09/18/23 [facility] [place] [address] [place] [address]- Allergies, Adverse Reactions, Alerts No Known Allergies [...] Maintenance, 05/16/23 11:17:00 EDT, [facility][id number], Partial fill upon patient request if the [...] Personnel Name: Bonita GUAJARDO, Kayleigh Maria Position: [facility] Physician - Primary Care Member Role: PCP Address: Address: [address] [place] [address]- Name: Ama Schumacher RN Position: [facility] OB RN Member Role: Primary Care Nurse Care Team Related Persons Name: LAMAR FIGUEROA Address: home [address] [address] Name: LINH FELTON Address: home [address] [place] [address] Name: JEREMI DELANEY Address: home [address] [facility] [place] [address] Name: REAL DELANEY Address: home [address] [place] [address]
--- OUTSIDE RECORDS SUMMARY | 2024-01-06 11:52 | XMS_ITS | Continuity of Care Document ---
Author Organization [facility] Primary [facility] e [place] Address [address] [place] [address]- Care Team Providers Care Spinning Bath Person Name Role Phone Bonita GUAJARDO, Kayleigh Maria Primary Care Physician [phone] Encounter [facility] [id number] Date(s): 08/30/21 - 09/29/21 [facility] [address] [place] [address]- Allergies, Adverse Reactions, Alerts No Known Allergies [...]
--- OUTSIDE RECORDS SUMMARY | 2024-01-06 11:52 | XMS_ITS | Continuity of Care Document ---
Author Organization [facility] Primary [facility] e [place] Address [address] [place] [address]- Care Team Providers Care Seasonal Customer Service Associate Name Role Phone Bonita GUAJARDO, Kayleigh Maria Primary Care Physician Encounter [facility] Date(s): 06/24/23 - 07/24/23 [facility] [place] [address] [place], [place] [address] Allergies, Adverse Reactions, Alerts No Known [...] Maintenance, 05/16/23 11:17:00 EDT, [id number], Partial fill upon patient request if the [...] Personnel Name: Bonita GUAJARDO, Kayleigh Maria Position: [facility] Physician - Primary Care Member Role: PCP Address: Address: [address] [place] [address]- Name: Ama Schumacher RN Position: [facility] OB RN Member Role: Primary Care Nurse Care Team Related Persons Name: LAMAR FIGUEROA Address: home [address] [address] Name: LINH FELTON Address: home [address] [place] [address] Name: JEREMI DELANEY Address: home [address] [place] [address] Name: REAL DELANEY Address: home [address] [place] [address]
--- OUTSIDE RECORDS SUMMARY | 2024-01-06 11:52 | XMS_ITS | Continuity of Care Document ---
Author Organization [facility] Primary [facility] e [place] Address [address] [place] [address]- Care Team Providers Care Information Systems Auditor Name Role Phone Kayleigh Mesa MD Primary Care Physician [phone] Encounter [facility] Date(s): 09/09/21 - 10/09/[address] [address] Allergies, Adverse Reactions, Alerts No Known [...] Team Personnel Name: Kayleigh Mesa MD Address: [address] [place] [id number]
== END 2023-12-30 13:32 | disposition home or self-care (01) ==
LOC: HO.HBS 08:13
PROVIDERS: PCP Internal Medicine; Visit Provider Surgery
DX: E66.812 Obesity, class 2 (principal); Z68.38 Body mass index [BMI] 38.0-38.9, adult; E66.09 Other obesity due to excess calories
CPT/HCPCS: 99215

== ENCOUNTER → 2023-12-30 08:13 | Outpatient (BNVA) | payer OTHER, SELFPAY | PROVIDERS: PCP Internal Medicine; Visit Provider Surgery ==

== ENCOUNTER 2024-01-20 08:13 | Outpatient (AMB) | payer OTHER, SELFPAY ==
--- NOTE | 2024-01-20 10:28 | MHC.OFFVISWM ---
VS Expanded 01/20/24 11:45 Height 5 ft 4 in Weight 218 lb 4 oz BMI 37.5 Body Fat % 48.6 Body Fat Mass 106.1 Fat Free Mass 112.2 Visceral Fat Rating 19 Body Water % 35.3 Body Water Mass 77 Basal Metabolic Rate/Score 1,475 Neck Circumference 0 in Intake Visit Reasons: TV Pre Op LSG 02/02/24 Allergies No Known Allergies Allergy (Verified 01/20/24 10:37) Medication List - Last Reconciled 01/20/24 by Miguel Lopez MD ferrous sulfate (Feosol) 325 mg PO DAILY norelgestromin-ethin.estradiol 150-35 mcg/24 hr (Xulane) patches transdermal ondansetron 4 mg PO Q12H pantoprazole 40 mg PO DAILY polyethylene glycol 3350 17 grams PO DAILY sucralfate 10 mL PO BID HPI HPI TV Pre Op LSG 02/02/24: Details: Start time: 10.30am, End time: 11am ?I spent 25 minutes speaking with the patient on the phone plus an additional 5 minutes reviewing and updating records for a total of 30 minutes HPI Comments Details: Overall weight loss: 21.8lbs, or 9.08% TBWL Is doing one premade Premier shake, 1.5 Atkins protein bars and one meal (7 forks of meat and 7 forks of salad or vegetables) Exercise: is doing the Elliptical for 400 calories x 6/week PFSH Medical History (Updated 01/20/24 @ 10:27 by Miguel Lopez MD) BMI 37.0-37.9, adult Surgical History Hx of wisdom tooth extraction Hx of section Family History Paternal Aunt Thyroid cancer Non-Hodgkin lymphoma Paternal Grandmother Bladder cancer Social History Alcohol intake: current Alcohol intake frequency: holidays/special occasions only Alcohol type: beer and wine Comment: weekends Patient Tobacco Use Status: Never used Tobacco Telehealth Telehealth Telehealth Platform: Telephone Location of provider rendering services: practice address Location of patient: address on file Patient Identification confirmed using: Name, : Yes Telehealth method: voice only Patient verbally consented to treatment: Yes Patient verbally consented to billing insurance company: Yes Patient informed of any privacy concerns related to visit: Yes Minutes spent on Phone/Video with Pt.: 30 Assessment & Plan Assessment & Plan (1) Obesity (BMI 30-39.9): Code(s): E66.9 - Obesity, unspecified Category: Medical Plan: 1. Plan for lap sleeve gastrectomy including upper GI endoscopy. All tests has been completed and reviewed and the patient is cleared for the surgery. ?If diaphragmatic or ventral hernias are present at time of surgery, these will be repaired laparoscopically as well. Risks and complications were discussed in detail including possible conversion to an open procedure, anastomotic leak, bleeding requiring transfusion, small bowel obstruction, , DVT and pulmonary embolism, cardiac, or pulmonary complications, as group home complications such as anastomotic ulcer, insufficient weight loss and vitamin deficiencies. I emphasized the importance of close follow-up, adherence to instructions and good communication. So far she has proven to be an excellent communicator and very compliant with all our directions accomplishing a great weight loss. I believe that she is an excellent candidate and she is ready. 2. Preop prescriptions were provided and explained the purpose of each one. Need to be purchased preop. Start Pantoprazole now as you get it from the pharmacy, 1 pill per day. Sucralfate and Zofran are for after surgery as needed. 3. Bowel prep: please do 7 packets ?of Miralax mixing each one with a an 8oz glass of water, crystal light, gatorade zero, or propel ?on 01/31/2024 and the same amount on 02/01/2024. The Miralax you begin with one packet at a time in 8oz water or crystal light, gatorade zero, or propel ?as early in the day as you can and you do them back to back until you finish them. Continue the protein shakes during ?the bowel prep. 4. Needs to purchase 1oz medicine cups . 5. Needs to purchase Children's liquid Tylenol for postop pain control. 6. Avoid aspirin, motrin, Advil, Aleve, Ibuprofen, Naproxyn. Tylenol is OK. 7. She needs to purchase the Celebrate 4:1 protein shakes or the Celebrate multivitamins from the hospital's gift shop. 8. Will do basic preop blood work-up any day between Tuesday01/18/22 and Tuesday01/22/22 fasting for 12 hours and is scheduled to see the Anesthesiologist prior to the day of surgery. 9. Importance of adherence to postop folllow-up and recommendations was underscored and she understands that. 10. Stop food and bars as of tomorrow 01/21/24 and continue with 5 PREMIER protein shakes (HU bottle EACH mixed with 4oz almond milk) at 7am-9am, 10am-12pm, 1pm-3pm, 4pm-6pm and at 7pm-9pm 11. No soups, broths or V8 12. The patient's?medical?history has been reviewed and they are considered low risk for post op DVT and therefore DVT prophylaxis is not considered necessary. Travel after surgery was reviewed. The patient has not disclosed any travel plans during the first 30 days after surgery and they have been advised that within the first 30 days after surgery any bus, plane, train or car travel over 2 hours in duration is contraindicated due to the possibility of developing blood clots from immobility. Any travel, needs to include periods of ambulation of 10 minutes in duration every 2 hours.? Patient was instructed to discuss any plans for travel during this period with their bariatric surgeon.? 13. Please take at the day of surgery the following medications: NONE 14. Stop any control pills and don't use them for one month after surgery 15. Absolutely no smoking or vaping, or marijuana until the surgery and for at least the first 4 weeks. Only nicotine patches are allowed. 16. Send me weight measurements on Tuesday01/27/24 and then on 02/02/24, the day of surgery before you go to the hospital. 17. Avoid any steroids by mouth for any reason. Let me know if someone prescribes them to you 18. These instructions supersede anything else you read in the handbook, anything you watched in videos or classes or you were told by any other provider. If there is any conflict, you follow the above instructions and nothing else. Orders: Orders TSH reflex Free T4 Today E66.9 - Obesity, unspecified, Z68.37 - Body mass index [BMI] 37.0-37.9, adult Prothrombin Time INR Today E66.9 - Obesity, unspecified, Z68.37 - Body mass index [BMI] 37.0-37.9, adult Hemoglobin A1c Today E66.9 - Obesity, unspecified, Z68.37 - Body mass index [BMI] 37.0-37.9, adult Type and Screen Today E66.9 - Obesity, unspecified, Z68.37 - Body mass index [BMI] 37.0-37.9, adult C Reactive Protein Today E66.9 - Obesity, unspecified, Z68.37 - Body mass index [BMI] 37.0-37.9, adult Comprehensive Met. Panel Today E66.9 - Obesity, unspecified, Z68.37 - Body mass index [BMI] 37.0-37.9, adult Lipid Panel Today E66.9 - Obesity, unspecified, Z68.37 - Body mass index [BMI] 37.0-37.9, adult Partial Thromboplastin Time Today E66.9 - Obesity, unspecified, Z68.37 - Body mass index [BMI] 37.0-37.9, adult Complete Blood Count Auto Diff Today E66.9 - Obesity, unspecified, Z68.37 - Body mass index [BMI] 37.0-37.9, adult Insulin Today E66.9 - Obesity, unspecified, Z68.37 - Body mass index [BMI] 37.0-37.9, adult Medications: New sucralfate 10 mL PO BID 600 mL 2RF K21.9 - Gastro-esophageal reflux disease without esophagitis pantoprazole 40 mg PO DAILY 90 tabs 0RF K21.9 - Gastro-esophageal reflux disease without esophagitis ondansetron Only take one every 12 hours as needed if you have nausea 4 mg PO Q12H 20 tabs 0RF nausea and vomiting R11.0 - Nausea polyethylene glycol 3350 Mix each measuring cup with 8oz of water, Crystal light, or Gatorade zero, or Propel and do 7 measuring cups on 01/31/24 and another 7 measuring cups on 02/01/24 17 grams PO DAILY 238 grams 0RF Z01.818 - Encounter for other preprocedural examination
[2024-01-20 11:45] VITALS: BMI 37.5
== END 2024-01-20 11:54 | disposition home or self-care (01) ==
LOC: HO.HBS 08:13
PROVIDERS: PCP Internal Medicine; Visit Provider Surgery
DX: E66.9 Obesity, unspecified (principal)
CPT/HCPCS: 99214

== ENCOUNTER → 2024-01-20 08:13 | Outpatient (BNVA) | payer OTHER, SELFPAY | PROVIDERS: PCP Internal Medicine; Visit Provider Surgery ==

== ENCOUNTER 2024-01-24 09:42 | Outpatient (REF) | payer OTHER, SELFPAY ==
[2024-01-24 10:02] LABS: MANUAL DIFF FLAG NO
[2024-01-24 11:26] LABS: Prothrombin Time 11.7 SEC (10.9-12.4)
[2024-01-24 11:28] LABS: Basophils Absolute Auto 0.1 X10*3/uL (0.0-0.2); Basophils Percent Auto 0.8 % (0-2); Eosinophils Percent Auto 0.4 % (0-4); Hematocrit 44.6 % (37.0-47.0); Hemoglobin 14.3 g/dl (12.0-16.0); Imm Gran Abs Auto 0.08 X10*3/uL (0.00-0.03); Lymphocytes Absolute Auto 2.2 X10*3/uL (1.2-4.9); Lymphocytes Percent Auto 25.9 % (20-40); Mean Corpuscular HGB Conc 32.1 g/dl (31.0-35.0); Mean Corpuscular Hemoglobin 29.4 pg (27.0-33.0); Mean Corpuscular Volume 91.6 fL (80.0-98.0); Mean Platelet Volume 11.5 fL (9.4-12.3); Monocytes Absolute Auto 0.6 X10*3/uL (0.1-1.2); Monocytes Percent Auto 7.2 % (2-11); Neutrophils Absolute Auto 5.4 x10*3/uL (2.0-8.3); Neutrophils Percent Auto 64.7 % (45-73); Platelet Count 302 X10*3/uL (160-400); Red Blood Count 4.87 X10*6/uL (4.20-5.50); Red Cell Distribution Width 12.6 % (11.0-16.0); White Blood Count 8.3 X10*3/uL (4.8-10.8)
[2024-01-24 11:29] LABS: Partial Thromboplastin Time 30.1 SEC (26.0-36.8)
[2024-01-24 11:43] LABS: Estimated Average Glucose 105 mg/dL; Hemoglobin A1c % 5.3 % (<6.0); Total Hemoglobin (HGBA1C) 3621.4555 umol/L
[2024-01-24 12:01] LABS: Alanine Aminotransferase 12 U/L (0-31); Alkaline Phosphatase 84 U/L (39-117); Anion Gap 14 (12-20); Aspartate Amino Transferase 19 U/L (5-31); Bilirubin Total 0.9 mg/dL (0.0-1.0); Blood Urea Nitrogen 13 mg/dL (9-16); C Reactive Protein 2.54 mg/dL (< or = 0.50); Calcium 8.7 mg/dL (8.4-10.2); Carbon Dioxide 29 mmol/L (22-29); Chloride 103 mmol/L (96-108); Cholesterol 218 mg/dL (<200); Estimated Glomerular Filt Rate > 60; Glucose Random 94 mg/dL (60-115); HDL Cholesterol 60 mg/dL (>40); LDL Cholesterol Calculated 133 mg/dL (<100); Potassium 3.6 mmol/L (3.3-5.1); Sodium 142 mmol/L (135-145); Total Protein 7.4 g/dL (6.5-8.0); Triglycerides 127 mg/dL (<150)
[2024-01-24 12:21] LABS: Insulin 8 uU/mL (2-29); TSH reflex Free T4 1.66 uIU/mL (0.32-4.0)
== END 2024-01-24 09:43 | disposition home or self-care (01) ==
LOC: HO.LAB 09:42
PROVIDERS: PCP Internal Medicine; Visit Provider Surgery
DX: E66.9 Obesity, unspecified (principal); Z68.37 Body mass index [BMI] 37.0-37.9, adult; Z13.1 Encounter for screening for diabetes mellitus
CPT/HCPCS: 36415; 80053; 80061; 83036; 83525; 84443; 85025; 85610; 85730; 86140

== ENCOUNTER 2024-02-02 08:01 | Inpatient (IN) | payer OTHER, SELFPAY ==
--- NOTE | 2024-01-24 14:48 | P.CONAN_ITS ---
Documented by User: Blanche Morales NP 01/31/24 14:57 HPI - Anesthesia Eval Consult details Narrative: 43yo F for Gastrectomy Sleeve - EGD, possible diaphragmatic hernia, possible ventral hernia, possible open PMFSH Active Problems Active Problems: All Active Problems Obesity (BMI 30-39.9) (Acute) Morbid obesity (Acute) BMI 37.0-37.9, adult (Acute) Past Medical History Medical History COVID-19 Tachycardia Murmur Chest pain Elevated cholesterol Fatty liver BMI 37.0-37.9, adult Family History Family History Paternal Aunt Thyroid cancer Non-Hodgkin lymphoma Paternal Grandmother Bladder cancer Family history of problems with anesthesia: No Surgical History Surgical History History of esophagogastroduodenoscopy (EGD) Hx of wisdom tooth extraction Hx of section History of Problems with Anesthesia: No Social History Social History Are you a primary acute care occupational therapist to a significant other at home: No Do you presently have visiting nurse or other home services: No Alcohol intake: current Alcohol intake frequency: a few times a month Alcohol type: beer and wine Comment: weekends Patient Tobacco Use Status: Never used Tobacco Use of substances other than those prescribed or required for medical reasons: Yes Substance Use Type Other:: edibles Substance Use Frequency: Occasionally Have you been hit, kicked, punched, or otherwise hurt by someone within the past year? If so, by whom?: No Are you DNR?: No Advance Directives: No Advance Directives on File: No Recently lost weight without trying: No Eating poorly because of decreased appetite: No Nutrition Risks: No Nutritional Risk Patient : No : No Poor oral hygiene: Yes (front tooth has cement from past injury as a child) Meds Allergies Allergy/AdvReac Type Severity Reaction Status Date / Time No Known Allergies Allergy Verified 01/20/24 10:37 Exam Height,Weight and Vital Signs: Height 5 ft 4 in Pertinent Lab Results Pertinent Lab Results: Laboratory Tests 01/24/24 09:51 Blood Type O Positive Antibody Screen NEGATIVE Laboratory Tests 01/24/24 10:00 WBC 8.3 Hgb 14.3 Hct 44.6 Plt Count 302 Sodium 142 Potassium 3.6 Chloride 103 Carbon Dioxide 29 BUN 13 Creatinine 0.81 Narrative Narrative: EKG 09/2023 Vent. Rate : 068 BPM Atrial Rate : 068 BPM P-R Int : 144 ms QRS Dur : 084 ms QT Int : 400 ms P-R-T Axes : 046 003 015 degrees QTc Int : 425 ms Normal sinus rhythm Normal ECG No previous ECGs available ECHO 2022 Summary The left ventricle is normal in size, wall thickness and systolic function. The ejection fraction is 55-65%. The right ventricle is normal in size and function. There is no significant valve disease. Comparison No prior study available for comparison. Assessment and Plan Assessment Anesthesia Assessment: Chart Reviewed Final Anesthetic Review Family History of Problems with Anesthesia: No History of Problems with Anesthesia: No Documented by User: Mini Bell MD 02/02/24 09:26 HPI - Anesthesia Eval Consult details Narrative: 43yo F for EGD, Laparoscopic Sleeve Gastrectomy, possible diaphragmatic hernia repair, possible ventral hernia repair, possible open PMFSH Active Problems Active Problems: All Active Problems Obesity (BMI 30-39.9) (Acute) Morbid obesity (Acute) Denies BANG Marijuana edibles Past Medical History Medical History COVID-19 Tachycardia Murmur Chest pain Elevated cholesterol Fatty liver BMI 37.0-37.9, adult Family History Family History Paternal Aunt Thyroid cancer Non-Hodgkin lymphoma Paternal Grandmother Bladder cancer Family history of problems with anesthesia: No Surgical History Surgical History History of esophagogastroduodenoscopy (EGD) Hx of wisdom tooth extraction Hx of section History of Problems with Anesthesia: No Social History Social History Are you a primary acute care occupational therapist to a significant other at home: No Do you presently have visiting nurse or other home services: No Alcohol intake: current Alcohol intake frequency: a few times a month Alcohol type: beer and wine Comment: weekends Patient Tobacco Use Status: Never used Tobacco Use of substances other than those prescribed or required for medical reasons: Yes Substance Use Type Other:: edibles Substance Use Frequency: Occasionally Have you been hit, kicked, punched, or otherwise hurt by someone within the past year? If so, by whom?: No Are you DNR?: No Advance Directives: No Advance Directives on File: No Recently lost weight without trying: No Eating poorly because of decreased appetite: No Nutrition Risks: No Nutritional Risk Patient : No : No Poor oral hygiene: Yes (front tooth has cement from past injury as a child) Meds Allergies Allergy/AdvReac Type Severity Reaction Status Date / Time No Known Allergies Allergy Verified 01/20/24 10:37 Exam Height,Weight and Vital Signs: Height 5 ft 4 in Weight 97.125 kg Vital Signs Temp Pulse Resp BP Pulse Ox O2 Del Method 02/02/24 08:40 98.0 F 66 16 127/84 96 Room Air Pertinent Lab Results Pertinent Lab Results: Laboratory Tests 01/24/24 09:51 Blood Type O Positive Antibody Screen NEGATIVE Laboratory Tests 01/24/24 10:00 WBC 8.3 Hgb 14.3 Hct 44.6 Plt Count 302 Sodium 142 Potassium 3.6 Chloride 103 Carbon Dioxide 29 BUN 13 Creatinine 0.81 Laboratory Results - last 24 hr 02/02/24 08:00 Urine Test NEGATIVE Airway Mallampati Class: II TM Dist: >3cm Neck ROM: Full Loose/Missing/Broken Teeth: Yes ([place] teeth extracted. Denies loose teeth. Front tooth bonded) Heart: RRR Lungs: CTAB Other: TMJ syndrome- clicking noises. Only dislocated once Assessment and Plan Assessment Anesthesia Assessment: Anesthesia Plan Discussed and Chart Reviewed Final Anesthetic Review Family History of Problems with Anesthesia: No History of Problems with Anesthesia: No NPO: Yes ASA Class: III Final Preanesthetic Review: No Changes in Pt Med Stat, Meds/Allgs Chart Reviewed, Consent Obtained/Reviewed and Anes Risks/Benef Reviewed Patient Risk: Intermediate Procedure Risk: Intermediate Assessment/Block/Sedation in SS: Assess/Block/Sedation-SS Anesthetic Plan Anesthetic Plan: GA Disposition: Standard PACU and Inp. Admit - Standard Bed
[2024-02-02] VITALS (12 sets, daily range): BP systolic 122–160; BP diastolic 71–94; PULSE 61–82; RESP 11–18; TEMP 36.1–36.8; O2SAT 94–97; BMI 36.8; BMI 36.7
[2024-02-02 08:27] LABS: UPreg QC Valid YES; Urine Pregnancy NEGATIVE (NEGATIVE)
[2024-02-02] MEDS: Lactated Ringers 1,000 ML 999 ML IV (08:50)
[2024-02-02] MEDS: Aprepitant 32 MG/4.4 ML VIAL IVPUSH (08:51)
--- NOTE | 2024-02-02 09:00 | PHA.MEDREC ---
Addendum entered by Arcenio Pace RP 02/02/24 12:36: MED REC CHECKED BY [facility] Original Note: Pharmacy Consult ? Medication Reconciliation Pharmacy has reviewed the medication reconciliation done by nursing. Spoke to patient to confirm med list. Patient states she is not taking Ferrous sulfate 325 mg, Xulane patch is put on hold for 2 months off.
--- NOTE | 2024-02-02 10:10 | MHC.SHP ---
Pre-Procedural Eval Section A - 24 Hr Update-Section A only Date of Service: 02/02/24 The patient is an INPATIENT: Yes The patient has been examined within 24 hours of the surgical procedure. The History & Physical has been completed within 30 days and I have reviewed it.: Yes Section B - Complete if H&P > 30 days Chief Complaint: Obesity Relevant Family History (Specify if Yes): No Relevant Social History: None Present Medications: None Medical History: No relevant PMH History of Previous Operations: No relevant previous surgery Allergies: Allergies Allergy/AdvReac Type Severity Reaction Status Date / Time No Known Allergies Allergy Verified 01/20/24 10:37 Review of Systems Sugical H&P ROS: Negative: Constitution, Cardiovascular, Respiratory, Neurological, Psychiatric, Hem-Onc, Allergic/Immunologic, Gastrointestinal, Genitourinary, Musculoskeletal, Integumentary, Endocrine and Eyes/Ears/Nose/Throat Exam Surgical H&P Exam: Normal: HEENT, Normal: Heart, Normal: Lungs, Normal: Extremities, Normal: Abdomen, Normal: Skin and Normal: Neurological Plan Diagnosis/Plan: Unchanged I have reviewed the history and physical and performed a pertinent physical examination on my patient. No changes have occurred unless specified. Time Spent With Patient Time: Total time managing care of this patient today ____ minutes.
--- NOTE | 2024-02-02 10:20 | P.PNGS_ITS ---
Subjective Subjective Date of Service: 02/03/24 Interval history: Feels well. Mild incisional pain. She is tolerating phase 1 bariatric diet Physical Exam 2 Vital Signs: Vital Signs: Last Vital Signs Temp 98.0 F 02/02/24 08:40 Pulse 66 02/02/24 08:40 Resp 16 02/02/24 08:40 BP 127/84 02/02/24 08:40 Pulse Ox 96 02/02/24 08:40 O2 Del Method Room Air 02/02/24 08:40 BMI result Body Mass Index 36.8 GI: Inspection: Yes normal to inspection, Yes incision (clean, dry and intact) and Yes obesity Palpation (GI): Soft to palpation Extrem: Right lower extremity: normal to inspection (no calf tenderness) L eft lower extremity: normal to inspection (no calf tenderness) Objective Data Active Medications Fentanyl (Fentanyl Citrate/Pf 100 Mcg/2 Ml Vial) 25 mcg IVPUSH Q5M PRN PRN Reason: Pain, Moderate to Severe (Pain Scale 4-10) Stop: 02/02/24 15:27 Hydromorphone HCl (Hydromorphone Hcl 0.5 Mg/0.5 Ml Syringe) 0.25 mg IVPUSH Q5M PRN PRN Reason: Pain, Moderate to Severe (Pain Scale 4-10) Stop: 02/02/24 15:28 Lactated Ringer's (Lr) 1,000 mls @ 100 mls/hr IVCONT .Q10H JOSE Ondansetron HCl (Ondansetron Hcl 4 Mg/2 Ml Vial) 4 mg IVPUSH ONCE PRN PRN Reason: Nausea and Vomiting Stop: 02/02/24 15:28 Labs 02/03/24 05:20 02/03/24 05:20 Labs: Laboratory Results - last 24 hr 02/02/24 08:00 Urine Test NEGATIVE Procedures Date of Service Date of Service: 02/03/24 Progress Note: A&P Assessment and plan (1) Obesity (BMI 30-39.9): Status: Acute Assessment and Plan: s/p laparoscopic sleeve gastrectomy, lysis of adhesions and gastropexy Doing well Will check am labs and if OK the patient will be discharged home (2) BMI 37.0-37.9, adult: Status: Acute (3) GERD (gastroesophageal reflux disease): Status: Acute (4) Fatty liver: Status: Acute (5) S/P laparoscopic sleeve gastrectomy: Status: Acute (6) Congenital intra-abdominal adhesions: Status: Acute Time Spent With Patient Time: Total time managing care of this patient today ____ minutes. Quality Stroke Does the patient have a stroke diagnosis?: No VTE Prior VTE?: No VTE Risk Level:: Surgical - moderate VTE Device Contraindication: N/A - Device Ordered VTE Drug Contraindication: Treatment Not Indicated
--- NOTE | 2024-02-02 10:22 | P.BOP_ITS ---
Brief Operative Note Date of Service: 02/02/24 Pre-op diagnosis: Severe obesity with comorbidities (see below) Post-op diagnosis: same Procedure: INITIAL PATIENT BMI ON PRESENTATION AT OUR OFFICE: 41.2 kg/m2 LAST BMI BEFORE SURGERY: 37.1 kg/m2 COMORBIDITIES: GERD, liver steatosis ?The patient presented to the Weight Management Program with significant obesity that was negatively impacting the patient's comorbidities as listed above.? The program is a phased program with a special focus on preoperative medical weight management to promote substantial weight loss and prepare the patients for the second phase of the program: bariatric surgery. The patient participated in an intensive weekly lifestyle ?intervention and exercise program during which the patient ?has lost between the initial office visit and the last preoperative visit 21.8lbs, or 9.1% of initial actual body weight. It was deemed appropriate for the patient to now have bariatric surgery. In light of the current Covid-19 pandemic and the well documented strong association of obesity and increased risk of worse outcomes if infected with Covid-19 (REFERENCES: https://pubmed.ncbi.nlm.nih.gov/00929331/ ,? https://pubmed.ncbi.nlm.nih. gov/18555394/ ), any delay in undergoing bariatric surgery may lead to the patient's worsening health condition and increased?risk of more severe Covid-19 disease if infected. In addition a recent?study from [facility] published in [facility] on 02/09/2021 ([email or web address]) found that, among patients with obesity, substantial weight loss achieved with surgery was associated with improved outcomes of COVID-19 infection. The findings suggest that obesity can be a modifiable risk factor for the severity of COVID-19 infection. In addition, the patient met the BMI-criteria for bariatric surgery based on the BMI on initial presentation. The patient should not be penalized for achieving such weight loss because ?it is not sustainable long-term without surgical intervention and it was achieved in preparation for bariatric surgery ?under my direction and based on my published research ([email or web address]).[email or web address] and? https://www.soard.org/article/[email or web address](07)98080-X/pdf ) ?that a 10% preoperative weight loss improves long-term weight loss after surgery and reduces perioperative complications.? Insurance carriers such as [facility] have endorsed my recommendations ?and have included in their policies criteria to include a 10% preoperative weight loss requirement. PROCEDURE: Esophago-gastroscopy, extensive laparoscopic lysis of adhesions, laparoscopic sleeve gastrectomy and laparoscopic gastropexy INDICATIONS: This is a 43 year-old female who was electively scheduled for laparoscopic, possibly open sleeve gastrectomy. The risks and complications of the procedure were discussed with the patient in advance, particularly the possibility of ; pulmonary embolism; staple line leak; bleeding; GERD; cardiac, pulmonary, or renal complications; as well as long-term problems such as insufficient weight loss, vitamin deficiency, strictures, or ulcers. The patient understood all the risks, and was in agreement to proceed with surgery. DESCRIPTION OF PROCEDURE: After informed consent was obtained from the patient, the patient was given preoperative antibiotics, and was transferred to the operating room. After successful induction of general anesthesia, pneumatic compression devices were placed on both lower extremities. An upper endoscopy was performed next. The oropharynx and esophagus appeared to be within normal limits. There was no significant diaphragmatic hernia present. The stomach was entered. Then after all fluid and air were suctioned and the stomach was fully decompressed, the scope was withdrawn and secured in the mid esophagus. The patient was then prepped and draped in the usual sterile manner, and abdominal access was established at the right upper quadrant with the Renetta technique. A 12 mm blunt port was inserted, and the abdomen was insufflated with CO2 to a pressure of 15 mmHg. Under direct visualization, additional ports were placed, specifically two 5 mm Versi-step ports to the left upper quadrant, and a 5 mm Versi-Step port to the right upper quadrant. 1% lidocaine plain was used to infiltrate all port sites as well as all fascia defects. There were adhesions in the abdomen from previous involving the omentum and the left anterior abdominal wall. Those were lysed completely with the ultrasonic device. Following that, the patient was placed in a steep reverse Trendelenburg position. An additional 5 mm port was placed to the right flank for the Mediflex retractor that was used to retract the left lobe of the liver. The gastro-esophageal fat pad was opened with the ultrasonic device (Thunderbeat, Olympus) and the anterior esophagus and hiatus were exposed. The angle of His was opened with the ultrasonic device the fundus of the stomach from any diaphragmatic and splenic attachments. I then opened the gastrocolic ligament between the transverse colon and the greater curvature of the stomach with the ultrasonic device to enter the lesser sac and facilitate the ligation of the short gastric vessels. I started at a mid-point along the greater curvature and using the Thunderbeat, all short gastric vessels were divided all the way to the angle of His until the left heidi was completely dissected at its entirety. I then divided the gastro-colic ligament distally to a distance of about 3-4 cm proximal to the pylorus. There were extensive congenital adhesions between the pancreas and posterior gastric wall. Those were lysed completely with the ultrasonic device. Adhesiolysis took approximately 45 min to complete. The stomach was then divided transversely with five Endo FIDELIA-45 purple and one FIDELIA-60 articulating purple loads using the PostHelpersIA stapler and loads. Every effort was made that the gastric sleeve had a tubular shape and an even caliber throughout. Once the sleeve resection was completed, the staple line of the gastric sleeve was reinforced with Hemoclips. The resected stomach was retrieved without difficulty from the Renetta port. A gastropexy was then performed in order to prevent postoperative GERD and partial gastric volvulus. Several interrupted 2.0 Surgidac sutures were placed between the sleeve's staple line and the previously divided greater omentum and gastro-colic ligament using the Endo-Stitch device. ?An upper endoscopy was performed. There was no narrowing at the GE junction. The scope was easily advanced all the way to the pylorus which was clearly visualized. There was no narrowing anywhere and the sleeve's caliber was even throughout. The sleeve's staple line was inspected and there was no evidence of ischemia, bleeding or dehiscence. At that point the gastroscope was withdrawn from the patient?s mouth while we were decompressing the bowel and the stomach from any remaining air. I looked into the lesser sac to see how the sleeve was situating and it was situating well. There was no bleeding from the staple line, spleen, or short gastric vessels. The Mediflex retractor was removed, and the undersurface of the liver was inspected and there was no bleeding. The patient was placed in supine position. I closed the fascial defect of the 12 mm port site with a figure of eight #1 Polysorb suture. Then 30cc Ropivacaine plain with 10 mg of Dexamethasone were used to infiltrate the fascial closure as well as all skin incisions. A total of 6ml Zynrelef was applied in the Renetta wound. At this point, the abdomen was deflated, all ports were removed under direct vision, and no bleeding was noted from any of the port sites. The skin incisions were irrigated with saline and were closed with 4-0 absorbable monofilament sutures. Steri-Strips and OpSites were used to cover all incisions. The patient was extubated and was transferred in stable condition to the recovery room for further care. I was present and performed all mendoza parts of the procedure. Ms. Cottrell was the sampler first. There were no residents to assist with this case. Audie Lopez MD, PhD, FACS Surgeon: Miguel Lopez MD Anesthesia: GETA, local and other (TAP block & 6ml Zynrelef) Was an Pipefitter Welder used for this Procedure?: No Estimated blood loss (mL): 10 IV fluids (mL): 2,500 Urine output (mL): 0 (No Peralta to record output) Pathology: other (1) Stomach, 2) gastro-esophageal fat pad) Condition: stable Disposition: PACU
--- NOTE | 2024-02-02 13:06 | P.DS_ITS ---
DS: Providers Provider Date of Service: 02/03/24 Date of admission: 02/02/24 08:01 Primary care physician: Kayleigh Mesa MD DS: Diagnosis Discharge Diagnosis (1) Obesity (BMI 30-39.9): Status: Acute (2) BMI 37.0-37.9, adult: Status: Acute (3) GERD (gastroesophageal reflux disease): Status: Acute (4) Fatty liver: Status: Acute (5) S/P laparoscopic sleeve gastrectomy: Status: Acute (6) Congenital intra-abdominal adhesions: Status: Acute DS: Summary Hospital Course Hospital Course: ADMITTING DIAGNOSIS: morbid obesity,?GERD, fatty liver ? DISCHARGE DIAGNOSIS: same, s/p laparoscopic sleeve gastrectomy and gastropexy ? PAST SURGICAL HISTORY:? Hx of wisdom tooth extraction Hx of section ? PROCEDURE: upper endoscopy, laparoscopic sleeve gastrectomy and gastropexy ? DISCHARGE SUMMARY: ? History of Present Illness: ? The patient is a?43 year-old woman with a BMI of 36.8 kg/m2 and associated co- morbidities as described above. The patient had extensive work-up, lost 28 lbs preoperatively and was electively scheduled for laparoscopic, possible open sleeve gastrectomy and gastropexy. Risks and complications of the surgery were discussed with the patient in advance, particularly the possibility of , pulmonary embolism, anastomotic leak, bleeding, bowel injury, GERD, cardiac, renal or pulmonary complications. The patient understood all the risks and was in agreement with the surgical plan. ? Hospital Course: ? The patient underwent an uneventful laparoscopic sleeve gastrectomy with gastropexy on the day of admission. Postoperatively, the patient was transferred to the surgical floor. The patient received IV Acetaminophen and IV dilaudid for pain control. Patient was started on bariatric phase 1 diet POD #0. On postoperative day one, the patient was feeling well without nausea, vomiting, fevers, or tachycardia. The patient had some mild incisional pain and the abdomen was soft.? ? On the morning of postoperative day one, the patient was continued on 1 ounce of water or ice every half hour. During the day, the patient did fairly well, having some incisional pain, but able to ambulate adequately and to tolerate liquids well. ? Since the patient is doing well, we decided that the patient was ready to be discharged. The patient was given instructions to follow-up with me next week and to call my office for any fever over 101, persistent abdominal pain, nausea, vomiting, GERD, symptoms of DVT such as calf tenderness, or leg swelling, or pulmonary embolism such as chest pain or shortness of breath.? The patient was also instructed to drink 40-60 ounces of liquids per day using the 1-ounce cups. The patient had been given prescriptions for Tylenol for pain, Zofran prn for nausea, and pantoprazole and carafate previously. The patient was encouraged to ambulate and use the incentive spirometer. The patient was allowed to shower, but no baths, and encouraged to stay active at home. All of these instructions were given to the patient personally. All questions were answered and the patient understood all instructions, the instructions were also given to the patient in print. Time Attestation Discharge Coordination Time (in mins): 30 Quality: Safe Use of Opioids Does Pt have an Active Cancer Diagnosis on the Problem List?: No Quality: Stroke Does the patient have a stroke diagnosis?: No Physical Exam Vital Signs: Vital Signs: Last Vital Signs Temp 98 F 02/02/24 12:55 Pulse 74 02/02/24 13:05 Resp 16 02/02/24 13:05 BP 137/82 02/02/24 13:05 Pulse Ox 96 02/02/24 13:05 O2 Del Method Nasal Cannula wit h Capnography 02/02/24 13:05 O2 Flow Rate 2 02/02/24 13:05 BMI result Body Mass Index 36.8 DS: Data Data Completed and Pending Pending studies at discharge: Pending at discharge 02/02/24 12:09 Surgical [PTH] Routine Labs on day of discharge: Laboratory Results - last 24 hr 02/02/24 08:00 Urine Test NEGATIVE Discharge Plan Discharge Anticipated Discharge Date/Time: 02/03/24 10:00 Patient Disposition: Home, Self-Care Discharge Diagnosis: s/p laparoscopic sleeve gastrectomy with gastropexy Referrals: Kayleigh Mesa MD [Primary Care Provider] - 1 Week Discharge Medications: Continued pantoprazole 40 mg tablet,delayed release (DR/EC) 40 mg PO DAILY Qty: 90 0RF sucralfate 100 mg/mL suspension 10 ml PO BID Qty: 600 2RF ondansetron 4 mg tablet,disintegrating 4 mg PO Q12H Qty: 20 0RF Rx Instructions: Only take one every 12 hours as needed if you have nausea Discharge Orders: Discharge Order (Routine); Ordered 02/03/24 Ordered By: Miguel Lopez Activity on Discharge: No heavy lifting Stand Alone Forms: Patient Portal Discharge page Print Language: Zimbabwean Care Plan Goals: weight loss Health Concerns: obesity Plan of Treatment: No tub baths, sex or returning to work until discussed at first post op appointment. No alcohol, tobacco or illegal drug use. Continue to use incentive spirometer hourly while awake. Walk in home for 5- 10 minutes every 2 hours during the first week. Wear abdominal binder with activity. Follow all meal plan instructions from your bariatric surgeon. Review bariatric handbook and call with any questions. Discharge Instructions 1. Please call your doctor or come back to the emergency room should any new symptoms arise. 2. Activity: abstain from alcohol,? limited stair climbing, no bending, no driving, no exercise, no illicit substances, no lifting, no sex, no tub bath, no work. 4. Diet: follow your bariatric surgeons recommendations for advancing diet. 5. Dressing Change/Wound Care: Your incisions are covered with waterproof dressings. You can shower with these and pat dry. Do not rub over dressings or incisions. If the area is tender, you may apply an ice pack for short intervals (no more than 20 minutes on, followed by at least 20 minutes off). Do not apply heat. Do not use creams, lotions, or topical antibiotics unless instructed to do so by your surgeon. 6. Call your doctor if: - Your temperature exceeds 101.5 F - You experience excessive pain or swelling - You have an unexpected reaction to medication - You have excessive bleeding - You experience continued vomiting/nausea - Your incision begins to separate - Your incision shows signs of infection such as increased redness, swelling, excessive pain, heat, or drainage (light blood or clear fluid is normal) General instructions: No lifting greater than 10 lbs for the next 6 weeks[address] driving within 24 hours of taking narcotic pain medications. If you do not move your bowels in the next 2 days, please take milk of magnesia over the counter. Please follow the post op diet and do not advance your diet until you are seen in the office in about 2 weeks. Please walk around your home every hour or two to prevent blood clots from forming in your legs. You do not need to wake from sleeping to walk. Please sleep in a bed or couch to prevent kinking at the hips and knees. Please take your incentive spirometer (your lung optomechanical technician) home with you and use it for the next few days to prevent pneumonias. You may shower, no hot tubs, baths or swimming pools. Please call the office with any questions or concerns such as increasing abdominal pain, fever, chills, shortness of breath, chest pain, leg pain or swelling, or redness or drainage from your incisions. Please make sure you are consuming 40-60 ounces of total fluids per day. Avoid all carbonation. Do not hesitate to contact the office with any questions at . The patient's medical history has been reviewed and they are considered low risk for post op DVT and therefore DVT prophylaxis is not considered necessary. Travel after surgery was reviewed. The patient has not disclosed any travel plans during the first 30 days after surgery and they have been advised that within the first 30 days after surgery any bus, plane, train or car travel over 2 hours in duration is contraindicated due to the possibility of developing blood clots from immobility. Any travel, needs to include periods of ambulation of 10 minutes in duration every 2 hours.? The patient was instructed to discuss any plans for travel during this period with their bariatric surgeon. Assessment: s/p laparoscopic sleeve gastrectomy with gastropexy Discharge Date/Time: 02/03/24 08:57
[2024-02-02] MEDS: fentaNYL citrate/PF 100 MCG/2 ML VIAL 25 MCG IVPUSH ×2 (13:18→13:23)
[2024-02-02 13:26] LABS: Hematocrit 38.5 % (37.0-47.0); Hemoglobin 12.9 g/dl (12.0-16.0)
[2024-02-02 13:36] LABS: Anion Gap 17 (12-20); Blood Urea Nitrogen 11 mg/dL (9-16); Calcium 8.4 mg/dL (8.4-10.2); Carbon Dioxide 20 mmol/L (22-29); Chloride 106 mmol/L (96-108); Creatinine Clr Calc Pharmacy 113.1; Estimated Glomerular Filt Rate > 60; Glucose Random 134 mg/dL (60-115); Potassium 3.8 mmol/L (3.3-5.1); Sodium 139 mmol/L (135-145)
[2024-02-02] MEDS: Haloperidol Lactate 5 MG/ML VIAL 1 MG IVPUSH (13:44)
[2024-02-02] MEDS: Lactated Ringers 1,000 ML 100 ML IVCONT ×2 (14:08→23:05)
[2024-02-02] MEDS: ceFAZolin Sodium/Dextrose,Iso 2 GM/50 ML PIGGYBACK IV (16:23)
[2024-02-02] MEDS: Acetaminophen 1,000 MG/100 ML PIGGYBACK 16.7 MG IV ×2 (17:10→23:04)
[2024-02-02] MEDS: Famotidine/PF 20 MG/2 ML VIAL IVPUSH (19:29)
[2024-02-02] MEDS: 0.9 % Sodium Chloride Flush 3 ML SYRINGE IVFLUSH (19:29)
[2024-02-03 04:00] VITALS: BP 131/81; PULSE 69; RESP 18; TEMP 37.1; O2SAT 95
[2024-02-03] MEDS: Acetaminophen 1,000 MG/100 ML PIGGYBACK 16.7 MG IV (04:41)
[2024-02-03 06:04] LABS: MANUAL DIFF FLAG NO
[2024-02-03 06:18] LABS: Basophils Percent Auto 0.1 % (0-2); Hematocrit 39.7 % (37.0-47.0); Hemoglobin 13.4 g/dl (12.0-16.0); Imm Gran Abs Auto 0.06 X10*3/uL (0.00-0.03); Imm Gran Pct Auto 0.5 % (0.0-0.4); Lymphocytes Absolute Auto 1.4 X10*3/uL (1.2-4.9); Lymphocytes Percent Auto 11.1 % (20-40); Mean Corpuscular HGB Conc 33.8 g/dl (31.0-35.0); Mean Corpuscular Hemoglobin 29.8 pg (27.0-33.0); Mean Corpuscular Volume 88.4 fL (80.0-98.0); Mean Platelet Volume 11.6 fL (9.4-12.3); Monocytes Absolute Auto 0.6 X10*3/uL (0.1-1.2); Monocytes Percent Auto 4.8 % (2-11); Neutrophils Absolute Auto 10.7 x10*3/uL (2.0-8.3); Neutrophils Percent Auto 83.5 % (45-73); Platelet Count 245 X10*3/uL (160-400); Red Blood Count 4.49 X10*6/uL (4.20-5.50); Red Cell Distribution Width 12.5 % (11.0-16.0); White Blood Count 12.8 X10*3/uL (4.8-10.8)
[2024-02-03 06:40] LABS: Anion Gap 17 (12-20); Blood Urea Nitrogen 8 mg/dL (9-16); Calcium 9.3 mg/dL (8.4-10.2); Carbon Dioxide 19 mmol/L (22-29); Chloride 106 mmol/L (96-108); Creatinine Clr Calc Pharmacy 116.4; Estimated Glomerular Filt Rate > 60; Glucose Random 115 mg/dL (60-115); Potassium 4.1 mmol/L (3.3-5.1); Sodium 138 mmol/L (135-145)
[2024-02-03] MEDS: Famotidine/PF 20 MG/2 ML VIAL IVPUSH (07:21)
[2024-02-03 07:30] VITALS: BP 157/96; PULSE 73; RESP 18; TEMP 36.2; O2SAT 98
--- NOTE | 2024-02-03 09:11 | MHC.CM.PN ---
PATIENT DC'D HOME SELF CARE VIA PRIVATE TRANSPORT PRIOR TO CM ASSESSMENT.
--- NOTE | 2024-02-03 10:29 | HO.POSTANES ---
Post Anesthesia Evaluation Post Anesthesia Evaluation Date of Service: 02/03/24 Vital Signs: Vital Signs Temp Pulse Resp BP Pulse Ox O2 Del Method 02/03/24 07:30 97.1 F 73 18 157/96 H 98 Room Air 02/03/24 04:00 98.8 F 69 18 131/81 95 Room Air 02/02/24 23:56 98.2 F 61 18 146/84 H 96 Room Air Anesthesia: General Endotracheal-GETA Mental Status: Awake Pain Control: Satisfactory Nausea/Vomiting: None Hydration: Adequate Anesthesia-Related Issues: No Anes. Related Issues
== END 2024-02-03 08:57 | disposition home or self-care (01) | DRG 620 ==
LOC: HO.SSSA 13:04 → HO.S3 13:12
PROVIDERS: Nurse Practitioner; Physician Assistant Surgical; Admitting Provider Surgery; PCP Internal Medicine; Visit Provider Surgery
PROC: 0DB64Z3 Excision of Stomach, Percutaneous Endoscopic Approach, Vertical (ICD-10-PCS; CPT 43845; principal; 2024-02-02 10:20)
DX: E66.01 Morbid (severe) obesity due to excess calories (principal); Q43.3 Congenital malformations of intestinal fixation; Z68.37 Body mass index [BMI] 37.0-37.9, adult; K21.9 Gastro-esophageal reflux disease without esophagitis; K76.0 Fatty (change of) liver, not elsewhere classified; Z79.899 Other long term (current) drug therapy
CPT/HCPCS: 36415; 80048; 81025; 85014; 85018; 85025; 86850; 86900; 86901; 88304; 88307; 88342; A4649; C9088; C9145; J0131; J0690; J1100; J1171; J1630; J2003; J2250; J2405; J2704; J2795; J3010; J7120

== ENCOUNTER → 2024-02-02 08:01 | Outpatient (BNV) | payer OTHER, SELFPAY | PROVIDERS: Admitting Provider Surgery; PCP Internal Medicine; Visit Provider Surgery | DX: E66.9 Obesity, unspecified (principal); Z68.37 Body mass index [BMI] 37.0-37.9, adult; Z98.84 Bariatric surgery status | CPT/HCPCS: 43659; 43775; 99024; 99499 ==

== ENCOUNTER 2024-02-09 10:20 | Outpatient (AMB) | payer OTHER, SELFPAY ==
--- NOTE | 2024-02-09 10:27 | A.OFFVIS_ITS ---
VS Expanded 02/09/24 10:52 BP 121/81 Blood Pressure Location Rt brachial Blood Pressure Position Sitting Pulse 77 Pulse Source Pulse Oximeter Temp 98.4 F Temperature Source Temporal Artery Scan Pulse Oximetry 98 Oxygen Delivery Method Room Air Height 5 ft 4 in Weight 205 lb BMI 35.2 Body Fat % 47.1 Body Fat Mass 96.6 Fat Free Mass 108.2 Visceral Fat Rating 12.0 Body Water % 37.8 Body Water Mass 77.4 Muscle Mass/Score 102.8 Basal Metabolic Rate/Score 1,541 Intake Visit Reasons: (OV) PO LSG 02/02/24 Allergies No Known Allergies Allergy (Verified 02/09/24 11:01) HPI Comments Details: Pleasant 43-year-old female who returns to the office today in follow-up. She is 7 days post sleeve gastrectomy performed on 01/1924. Weight today is 205 lb with a BMI of 35.2. Meal plan change today 2 celebrate 4 in 1, 2 scoops each in 2 shakes and 1 celebrate rebuild with 2 scoops. She is tolerating 40-45 oz of fluids. She has moved her bowels. [facility] Medical History (Updated 02/02/24 @ 12:56 by Miguel Lopez MD) GERD (gastroesophageal reflux disease) COVID-19 Tachycardia Murmur Chest pain Elevated cholesterol Fatty liver BMI 37.0-37.9, adult Surgical History S/P laparoscopic sleeve gastrectomy History of esophagogastroduodenoscopy (EGD) Hx of wisdom tooth extraction Hx of section Family History Paternal Aunt Thyroid cancer Non-Hodgkin lymphoma Paternal Grandmother Bladder cancer Social History Household Members: Children Housing: House Are you a primary day care home provider to a significant other at home: No Do you presently have visiting nurse or other home services: No Alcohol intake: current Alcohol intake frequency: a few times a month Alcohol t ype: beer and wine Comment: weekends Patient Tobacco Use Status: Never used Tobacco Substance Use Type: Marijuana Physical Exam GI Inspection: Yes incision (Clean, dry, intact.) Assessment & Plan Assessment & Plan (1) S/P laparoscopic sleeve gastrectomy: Code(s): Z98.84 - Bariatric surgery status Category: Surgical Plan: POD 7 s/p LSG on 01/[address] Lopez Weight loss prior to surgery was 26.8 pounds or 11.1 % TBWL. Original weight on 09/13/2023 was 240.4 pounds and op weight was 213.6 pounds. Be sure to text Dr Lopez exactly 1 week after surgery your weight from your home scale so he can adjust your meal plan. Continue meal plan until f/u nicole Hernandez in 2 weeks May shower, no submersion in bath for another week Continue abdominal binder with activity and exercise for the next 2 weeks. Exercise prior to surgery was elliptical and may resume No abdominal exercises for 6 weeks post operatively Will be emailed link to post op video for review Reminded of the pace of drinking, 2 mL per minute, 1 oz/15 min.
[2024-02-09 10:52] VITALS: BP 121/81; PULSE 77; TEMP 36.9; O2SAT 98; BMI 35.2
== END 2024-02-09 11:25 | disposition home or self-care (01) ==
PROVIDERS: PCP Internal Medicine; Visit Provider Physician Assistant Surgical
DX: Z98.84 Bariatric surgery status (principal)
CPT/HCPCS: 99024

== ENCOUNTER → 2024-02-09 10:20 | Outpatient (BNVA) | payer OTHER, SELFPAY | PROVIDERS: PCP Internal Medicine; Visit Provider Physician Assistant Surgical ==

== ENCOUNTER 2024-03-09 11:17 | Outpatient (AMB) | payer OTHER, SELFPAY ==
--- NOTE | 2024-03-09 11:22 | MHC.OFFVISWM ---
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 Presents for 1 month post op visit. Weight today is 197.4 pounds, with a BMI of 33.9. There has been a 43 pound weight loss,(initial weight 240.4 pounds) since starting the program on 09/13/2023 reflecting a 17.8 % total body weight loss and a weight loss of 16.2 pounds since surgery (operative weight 213.6 pounds) reflecting a 7.5 % TBWL since surgery. No complaints of nausea, emesis, abdominal pain or reflux. Reports infrequent but normal bowel movements every 2-3 days and uses stool softeners regularly. Supplements with flintstone vitamins when not doing the celebrate 4 in 1 Present meal plan includes: Premier protein rtd or celebrate 4 in 1 2 scoops atkins 17 gm bar (4 of 7 days only has 1/2) celebrate 4 in 1 2 scoops or premier protein rtd meal 2 TBPS cottage cheese or humus or 2 forks scrambled egg drinking 45-60 oz fluids ? Exercise routine includes: elliptical 4 days per week 200-300 PFSH Medical History Morbid obesity GERD (gastroesophageal reflux disease) COVID-19 Tachycardia Murmur Chest pain Elevated cholesterol Fatty liver BMI 37.0-37.9, adult Surgical History S/P laparoscopic sleeve gastrectomy History of esophagogastroduodenoscopy (EGD) Hx of wisdom tooth extraction Hx of section Family History Paternal Aunt Thyroid cancer Non-Hodgkin lymphoma Paternal Grandmother Bladder cancer Social History Household Members: Children Housing: House Are you a primary healthcare social worker to a significant other at home: No Do you presently have visiting nurse or other home services: No Alcohol intake: former Comment: weekends Patient Tobacco Use Status: Never used Tobacco Substance Use Type: Marijuana Physical Exam Vital Signs: Last Vital Signs Temp 98.2 F 03/09/24 11:28 Pulse 64 03/09/24 11:28 BP 122/71 03/09/24 11:28 Pulse Ox 99 03/09/24 11:28 Oxygen Delivery Method Room Air 03/09/24 11:28 BMI result Body Mass Index 33.9 Const General: healthy appearing and no acute distress Resp Effort & Inspection: normal respiratory effort Auscultation: clear to auscultation bilaterally Cardio Rate: regular rate Rhythm: regular rhythm GI Auscultation: normal bowel sounds Extrem General: Yes normal to inspection Assessment & Plan Assessment & Plan (1) S/P laparoscopic sleeve gastrectomy: Code(s): Z98.84 - Bariatric surgery status Category: Surgical Plan: Overall doing well. She is making adjustments as need for her busy schedule. Suggest: Celebrate 4 in 1 shake 2 scoops Premier protein rtd shake 1/2 atkins bar 2 tbsp cottage chees or 2 forks egg Increase exercise to 300-400 adiel 5-6 x per week RCT 4 weeks
[2024-03-09 11:28] VITALS: BP 122/71; PULSE 64; TEMP 36.8; O2SAT 99; BMI 33.9
== END 2024-03-09 12:19 | disposition home or self-care (01) ==
PROVIDERS: PCP Internal Medicine; Visit Provider Physician Assistant Surgical
DX: Z98.84 Bariatric surgery status (principal)
CPT/HCPCS: 99024

== ENCOUNTER → 2024-03-09 11:17 | Outpatient (BNVA) | payer OTHER, SELFPAY | PROVIDERS: PCP Internal Medicine; Visit Provider Physician Assistant Surgical ==

== ENCOUNTER 2024-04-30 11:15 | Outpatient (AMB) | payer OTHER, SELFPAY ==
--- NOTE | 2024-04-30 11:22 | A.OFFVIS_ITS ---
VS Expanded 04/30/24 11:31 BP 125/99 H Blood Pressure Location Rt brachial Blood Pressure Position Sitting Pulse 70 Pulse Source Pulse Oximeter Temp 98.4 F Temperature Source Temporal Artery Scan Pulse Oximetry 99 Oxygen Delivery Method Room Air Height 5 ft 4 in Weight 182 lb 3.2 oz BMI 31.3 Body Fat % 40.7 Body Fat Mass 74.0 Fat Free Mass 108.0 Visceral Fat Rating 9.0 Body Water % 42.3 Body Water Mass 77.0 Muscle Mass/Score 102.6 Basal Metabolic Rate/Score 1,501 Intake Visit Reasons: (OV) PO LSG 02/02/24 Cutter Plastics Rolls Required: No Allergies No Known Allergies Allergy (Verified 04/30/24 11:28) Medication List - Last Reconciled 04/30/24 by ALMA ROSA Hennessy No Known Home Meds HPI Comments Details: This?a?43?yo female who is s/p LSG without hiatal hernia repair on?02/02/24. Presents for 3 month post op visit. Weight today is 182.2 pounds, with a BMI of 31.3. There has been a 58.2 pound weight loss,(initial weight 240.4 pounds) since starting the program on 09/13/2023 reflecting a 24.2 % total body weight loss and a weight loss of 31.4 pounds since surgery (operative weight 213.6 pounds) reflecting a 14.7 % TBWL since surgery. No complaints of nausea, emesis, abdominal pain or reflux. Reports infrequent but normal bowel movements every 2-3 days and uses stool softeners regularly. Supplements with flintstone vitamins when not doing the celebrate 4 in 1. States she has been frustrated with the repetitiveness of the meal plan and she chamged it somewhat. No following meal plan: 30 gm premier protein rtd 1/2 atkins bar sometimes 1/2 c guacamole - 4 tbsp meal - chicken/beans - 4 forks, avg 30-40 oz water recommended meal plan includes: Celebrate 4 in 1 shake 2 scoops Premier protein rtd shake 1/2 atkins bar 2 tbsp cottage cheese or 2 forks egg drinking 45-60 oz fluids ? Exercise routine includes: elliptical 2 days per week 200-300 2 outdoor days walking 1 hour PFSH Medical History Morbid obesity GERD (gastroesophageal reflux disease) COVID-19 Tachycardia Murmur Chest pain Elevated cholesterol Fatty liver BMI 37.0-37.9, adult Surgical History S/P laparoscopic sleeve gastrectomy History of esophagogastroduodenoscopy (EGD) Hx of wisdom tooth extraction Hx of section Family History Paternal Aunt Thyroid cancer Non-Hodgkin lymphoma Paternal Grandmother Bladder cancer Social History Household Members: Children Housing: House Are you a primary landcare facilitator to a significant other at home: No Do you presently have visiting nurse or other home services: No Alcohol intake: former Comment: weekends Patient Tobacco Use Status: Never used Tobacco Substance Use Type: Marijuana Physical Exam Const General: healthy appearing and no acute distress Resp Effort & Inspection: normal respiratory effort Auscultation: clear to auscultation bilaterally Cardio Rate: regular rate Rhythm: regular rhythm GI Auscultation: normal bowel sounds Extrem General: Yes normal to inspection Assessment & Plan Assessment & Plan (1) S/P laparoscopic sleeve gastrectomy: Code(s): Z98.84 - Bariatric surgery status Category: Surgical Plan: Patient states that she is developing an intolerance to the Premier protein shakes as well she would like to incorporate more food. Discussed eliminating the walking slowly, and we will follow the recommended meal plan below: Fair life 26 g ready to drink shake Meal 4 forks protein and 4 forks vegetables Repeat meal She may have a quarter cup fresh berries if necessary. Encouraged to track calories while walking using [employer]. Encouraged to do 20 minutes of weight training and 40 minutes of cardio on a daily basis. Goal of 300 calories burned per day or more. Encouraged to continue to text and communicate weekly. Return to clinic 6 weeks.
[2024-04-30 11:31] VITALS: BP 125/99; PULSE 70; TEMP 36.9; O2SAT 99; BMI 31.3
== END 2024-04-30 12:03 | disposition home or self-care (01) ==
LOC: HO.HBS 11:16
PROVIDERS: PCP Internal Medicine; Visit Provider Physician Assistant Surgical
DX: E66.811 Obesity, class 1 (principal); Z68.31 Body mass index [BMI] 31.0-31.9, adult; Z90.3 Acquired absence of stomach [part of]; Z98.84 Bariatric surgery status
CPT/HCPCS: 99024

== ENCOUNTER → 2024-04-30 11:15 | Outpatient (BNVA) | payer OTHER, SELFPAY | PROVIDERS: PCP Internal Medicine; Visit Provider Physician Assistant Surgical ==

== ENCOUNTER 2024-06-11 10:30 | Outpatient (AMB) | payer OTHER, SELFPAY ==
--- NOTE | 2024-06-11 10:36 | A.OFFVIS_ITS ---
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 Presents for 4 month post op visit. Weight today is 176 pounds, with a BMI of 30.2. There has been a 64.4 pound weight loss,(initial weight 240.4 pounds) since starting the program on 09/13/2023 reflecting a 26.7 % total body weight loss and a weight loss of 37.6 pounds since surgery (operative weight 213.6 pounds) reflecting a 17.6 % TBWL since surgery. No complaints of nausea, emesis, abdominal pain or reflux. Reports infrequent but normal bowel movements every 2-3 days and uses stool softeners regularly. Taking step up bariatric MVI w iron. Sometimes using 42 gm fairlife. She has been having stress in her life and not exercising as much. She states she is comfortable losing more weight, just adjusting to her new weight. recommended meal plan includes: Fair life 26 g ready to drink shake Meal 4 forks protein and 4 forks vegetables Repeat meal She may have a quarter cup fresh berries if necessary. drinking 45-60 oz fluids ? Exercise routine includes: not much exercise in the last few weeks previously elliptical 2-3 days per week 200-300 2 outdoor days walking 1 hour [facility] Medical History Morbid obesity GERD (gastroesophageal reflux disease) COVID-19 Tachycardia Murmur Chest pain Elevated cholesterol Fatty liver BMI 37.0-37.9, adult Surgical History S/P laparoscopic sleeve gastrectomy History of esophagogastroduodenoscopy (EGD) Hx of wisdom tooth extraction Hx of section Family History Paternal Aunt Thyroid cancer Non-Hodgkin lymphoma Paternal Grandmother Bladder cancer Social History Household Members: Children Housing: House Are you a primary resident care aid to a significant other at home: No Do you presently have visiting nurse or other home services: No Alcohol intake: former Comment: weekends Patient Tobacco Use Status: Never used Tobacco Substance Use Type: Marijuana Telehealth Telehealth Telehealth Platform: Telephone Location of provider rendering services: practice address Location of patient: other Patient Identification confirmed using: Name, : Yes Telehealth method: voice only Patient verbally consented to treatment: Yes Patient verbally consented to billing insurance company: Yes Patient informed of any privacy concerns related to visit: Yes Minutes spent on Phone/Video with Pt.: 15 Assessment & Plan Assessment & Plan (1) S/P laparoscopic sleeve gastrectomy: Code(s): Z98.84 - Bariatric surgery status Category: Surgical Plan: Overall, patient is doing well now following the meal plan. Encouraged to increase exercise as she is able. She states that she has been stressed and is trying to exercise as much as she can. We will have her return to the office for her six-month follow-up appointment. Encouraged to send weight is weekly text with any questions and follow the meal plan. Encouraged to avoid the 42 g ready to drink shake, if that is the only thing that is available, having half.
[2024-06-11 10:37] VITALS: BMI 30.2
--- OUTSIDE RECORDS SUMMARY | 2024-06-11 12:48 | XMS_ITS | Clinical Summary ---
Author Organization [facility] [employer] [facility] lin Address [address] [place] [address] Care Team Providers Care Dietitian Therapeutic Name Role Phone Kayleigh Mesa MD Primary Care Provi janes Allergies No known active allergies Medications phentermine (ADIPEX-P) 37.5 mg tablet TAKE 1 TABLET BY MOUTH EVERY DAY IN THE MORNING AT LEAST 1 HOUR AFTER A MEAL 07/31/2021 Active Social History Tobacco Use Types Packs/Day Years Used Date Smoking Tobacco: Never Smokeless Tobacco: Never Comments No Sex and Gender Information Value Date Recorded Sex Assigned at Not on file Legal Sex Female 5:25 PM EDT Gender Identity Not on file Sexual Orientation Not on file Last Filed Vital Signs Vital Sign Reading Time Taken Comments Blood Pressure 128/86 05/12/2022 3:20 PM EDT Pulse 87 05/12/2022 3:20 PM EDT Temperature 36.1 ??C (96.9 ??F) 05/12/2022 3:20 PM ED T Respiratory Rate 18 05/12/2022 3:20 PM EDT Oxygen Saturation 97% 05/12/2022 3:20 PM EDT Inhaled Oxygen Concentration - - Weight - - Height - - Body Mass Index - - Plan of Treatment Health Maintenance Due Date Last Done Comments Colorectal Cancer: COLONOSCO PY Screening every 10 yrs (or Modifier) 1978 Depression: Screening Annual ly using PHQ-2/9 in Adults 18 yrs or above (or HM Modifier)([facility]) 1978 Hepatitis C Virus Infection in Adolescents and Adults: Screening (or Modifier) ([facility]) 1996 [facility] Screening Reminder: Annually for all adults ([facility]) 1996 Tobacco Smoking Cessation: i n Adults excluding Women: Behavioral and Pharmacotherapy Interventions ([facility]) 1996 Lipid Screening: Once for Wo men aged 20 to 45 yrs ([facility]) 1998 Cervical Cancer Screenin-65 yrs of age (or Modifier) 11/15/1999 Cervical Cancer Screening: P ap every 3 yrs pts age 21-65 11/15/1999 Cervical Cancer: Pap Screeni ng with Modifier timing ([facility]) 11/15/1999 Cervical Cancer: hrHPV alone or with cotesting Pap for Pts 30-65yrs screening every 5yrs ([facility]) 11/15/1999 COVID-19 Vaccine Screening: Initial Series and Booster Status ([facility]) (2023-) 10/16/2023 11/22/2020, 11/01/2020 Colorectal Cancer Screening 45 -75 Yrs (or HM Modifier) 11/15/2023 Colorectal Cancer: FLEXIBLE SIGMOIDOSCOPY Screening every 5 yrs 11/15/2023 Colorectal Cancer: Fecal Immunochemical Test (FIT) Annually [facility] 11/15/2023 Colorectal Cancer: High-sensitivity gFOBT Screening Annually [facility] 11/15/2023 Colorectal Cancer: Stool Cologuard Screening every 3 yrs 11/15/2023 Colorectal Cancer:CT Colonography Screening every 5 yrs 11/15/2023 Flu Vaccination: Yearly for ages 18mos through 64 years (or Modifier)([facility]) 09/14/2024 DTaP/Tdap/Td Vaccines ([facility]) (2 - Td or Tdap) 08/11/2026 08/11/2016 Zoster/Shingles Vaccine Seri es Screening: Adults aged 18+ yrs (or HM Modifiers)([facility]) (1 of 2) 2028 Pneumococcal Vaccination Screening: Pts 0-19 & 19-49 yrs of age ([facility]) Aged Out No longer eligible based on patient's age to complete this topic Medical Devices Not on file Insurance [facility] Care Teams Dietitian Therapeutic Relationship Specialty Start Date End Date Kayleigh Mesa MD [address] [place] [id number] PCP - General Internal Medicine 08/14/21
== END 2024-06-11 10:53 | disposition home or self-care (01) ==
LOC: HO.HBS 10:45
PROVIDERS: PCP Internal Medicine; Visit Provider Physician Assistant Surgical
DX: E66.9 Obesity, unspecified (principal); E66.811 Obesity, class 1; Z68.30 Body mass index [BMI] 30.0-30.9, adult; Z98.84 Bariatric surgery status
CPT/HCPCS: 98012

== ENCOUNTER 2024-07-27 10:47 | Outpatient (REF) | payer OTHER, SELFPAY ==
[2024-07-27 11:46] LABS: MANUAL DIFF FLAG NO
[2024-07-27 12:24] LABS: Basophils Percent Auto 0.5 % (0-2); Eosinophils Percent Auto 0.3 % (0-4); Hemoglobin 13.1 g/dl (12.0-16.0); Imm Gran Abs Auto 0.04 X10*3/uL (0.00-0.03); Imm Gran Pct Auto 0.5 % (0.0-0.4); Lymphocytes Percent Auto 25.2 % (20-40); Mean Corpuscular Hemoglobin 30.3 pg (27.0-33.0); Mean Corpuscular Volume 94.9 fL (80.0-98.0); Mean Platelet Volume 11.5 fL (9.4-12.3); Monocytes Absolute Auto 0.4 X10*3/uL (0.1-1.2); Monocytes Percent Auto 5.2 % (2-11); Neutrophils Absolute Auto 5.4 x10*3/uL (2.0-8.3); Neutrophils Percent Auto 68.3 % (45-73); Platelet Count 222 X10*3/uL (160-400); Red Blood Count 4.32 X10*6/uL (4.20-5.50); Red Cell Distribution Width 12.9 % (11.0-16.0); White Blood Count 7.9 X10*3/uL (4.8-10.8)
[2024-07-27 12:28] LABS: Estimated Average Glucose 94 mg/dL; Hemoglobin A1c % 4.9 % (<6.0)
--- OUTSIDE RECORDS SUMMARY | 2024-07-27 12:30 | XMS_ITS | Clinical Summary ---
Author Organization [facility] [employer] [facility] lin Address [address] [place] [address] Care Team Providers Care Floor Tiling Professional Name Role Phone Kayleigh Mesa MD Primary [...] Adults 18 yrs or above (or HM Modifier)([facility]) 1996 Hepatitis C Virus Infection in Adolescents and Adults: Screening (or Modifier) ([facility]) 1996 SDIL Screening Reminder: Annually for all adults ([facility]) 1996 Tobacco Smoking Cessation: i n Adults excluding Women: Behavioral and Pharmacotherapy Interventions ([facility]) 1996 Cervical Cancer Screenin-65 yrs of age (or Modifier) 11/15/1999 Cervical Cancer Screening: P ap every 3 yrs pts age 21-65 11/15/1999 Cervical Cancer: Pap Screeni ng with Modifier timing ([facility] ) 11/15/1999 Cervical Cancer: hrHPV alone or with cotesting Pap for Pts 30-65yrs screening every 5yrs ([facility]) 11/15/1999 COVID-19 Vaccine Screening: Initial Series and Booster Status ([facility]) (2023- season) 2023 11/22/2020, 11/01/2020 Colorectal Cancer Screening 45 -75 Yrs (or HM Modifier) 11/15/2023 Colorectal Cancer: FLEXIBLE SIGMOIDOSCOPY Screening every 5 yrs 11/15/2023 Colorectal Cancer: Fecal Immunochemical Test (FIT) Annually [facility] 11/15/2023 Colorectal Cancer: High-sensitivity gFOBT Screening Annually [facility] 11/15/2023 Colorectal Cancer: Stool Cologuard Screening every 3 yrs 11/15/2023 Colorectal Cancer:CT Colonography Screening every 5 yrs 11/15/2023 Flu Vaccination: Yearly for ages 18mos through 64 years (or Modifier)([facility]) 09/14/2024 DTaP/Tdap/Td Vaccines ([facility]) (2 - Td or Tdap) 08/11/2026 08/11/2016 Zoster/Shingles Vaccine Seri es Screening: Adults aged 18+ yrs (or HM Modifiers)([facility]) (1 of 2) 2028 Pneumococcal Vaccination Screening: Pts 0-19 & 19-49 yrs of age ([facility]) Aged Out No longer eligible based on patient's age to complete this topic Medical Devices Not on file Insurance [facility] Care Teams Floor Tiling Professional Relationship Specialty Start Date End Date Kayleigh Mesa MD [address] [place] [address] PCP - General Internal Medicine 08/14/21
[2024-07-27 13:08] LABS: Alanine Aminotransferase 12 U/L (0-31); Albumin Level 4.3 g/dL (3.5-5.0); Alkaline Phosphatase 80 U/L (39-117); Anion Gap 12 (12-20); Aspartate Amino Transferase 14 U/L (5-31); Bilirubin Total 0.7 mg/dL (0.0-1.0); Blood Urea Nitrogen 13 mg/dL (9-16); C Reactive Protein 1.82 mg/dL (< or = 0.50); Calcium 9.3 mg/dL (8.4-10.2); Carbon Dioxide 26 mmol/L (22-29); Chloride 106 mmol/L (96-108); Cholesterol 225 mg/dL (<200); Estimated Glomerular Filt Rate > 60; Glucose Random 88 mg/dL (60-115); HDL Cholesterol 75 mg/dL (>40); Iron 61 mcg/dL (30-160); LDL Cholesterol Calculated 127 mg/dL (<100); Percent Iron Saturation 18 % (15-50); Sodium 140 mmol/L (135-145); Total Iron Binding Capacity 341 mcg/dL (228-428); Total Protein 7.1 g/dL (6.5-8.0); Triglycerides 116 mg/dL (<150); Unsaturated Iron Binding 280 ug/dL
[2024-07-27 13:10] LABS: Ferritin 157 ng/mL (10-250); Insulin 6 uU/mL (2-29); TSH reflex Free T4 1.19 uIU/mL (0.32-4.0); Vitamin D 25-OH Total 46.2 ng/mL (>30)
[2024-07-27 13:27] LABS: Folate 12.9 ng/mL (> or = 4.0); Vitamin B12 479 pg/mL (200-900)
[2024-07-30 20:09] LABS: Zinc 88 mcg/dL (60-130)
[2024-08-01 18:09] LABS: Vitamin A 54 mcg/dL (38-98)
[2024-08-02 06:24] LABS: Vitamin B1 14 nmol/L (8-30)
== END 2024-07-27 10:48 | disposition home or self-care (01) ==
LOC: HO.LAB 10:47
PROVIDERS: PCP Internal Medicine; Visit Provider Physician Assistant Surgical
DX: K76.0 Fatty (change of) liver, not elsewhere classified (principal); Z98.84 Bariatric surgery status; Z13.1 Encounter for screening for diabetes mellitus
CPT/HCPCS: 36415; 80053; 80061; 82306; 82607; 82728; 82746; 83036; 83525; 83540; 84425; 84443; 84590; 84630; 85025; 86140

== ENCOUNTER 2024-07-27 10:47 | Outpatient (AMB) | payer OTHER, SELFPAY ==
--- NOTE | 2024-07-27 10:55 | MHC.OFFVISWM ---
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 Presents for 6 month post op visit. Weight today is 172.2 pounds, with a BMI of 29.6. There has been a 68.2 pound weight loss,(initial weight 240.4 pounds) since starting the program on 09/13/2023 reflecting a 28.3 % total body weight loss and a weight loss of 41.4 pounds since surgery (operative weight 213.6 pounds) reflecting a 19.3 % TBWL since surgery. No complaints of nausea, emesis, abdominal pain or reflux. Reports infrequent but normal bowel movements every 2-3 days and uses stool softeners regularly. Taking step up bariatric MVI w iron. Sometimes using 42 gm fairlife. She has been having stress in her life and not exercising as much. She states she is comfortable losing more weight, just adjusting to her new weight. She states she has achieved her goal weight. recommended meal plan includes: Fair life 26 g ready to drink shake or premier protein RTD shake Meal 4 forks protein and 4-5 forks vegetables Repeat meal She may have a quarter cup fresh berries if necessary. drinking 45-60 oz fluids ? Exercise routine includes: walking outside, 2-3 days per week, not tracking calories burned, time or distance. Bodyweight exercises Any post op complications: none BANG: never DM: never HTN: never Hyperlipidemia: never GERD:?0-5 scale ??0 = no symptoms ??1 = symptoms noticeable but not bothersome 2 =symptoms bothersome but not daily ? 3 = symptoms bothersome and daily 4 = symptoms affect daily activities 5 = symptoms are incapacitating, unable to do daily activities ? How bad is the heartburn: 0 ? Heartburn while lying down: 0 ? Heartburn when standing up: 0 ? Heartburn after meals: 0 ? Does heartburn change your diet: 0 ? Does heartburn wake you up from sleep: 0 ? Do you have difficulty swallowin ? Do you have pain with swallowin ? If you take medicine for your reflux, does this affect your daily life: 0 Satisfaction with present condition - satisfied or not satisfied: satisfied [facility] Medical History Morbid obesity GERD (gastroesophageal reflux disease) COVID-19 Tachycardia Murmur Chest pain Elevated cholesterol Fatty liver BMI 37.0-37.9, adult Surgical History S/P laparoscopic sleeve gastrectomy History of esophagogastroduodenoscopy (EGD) Hx of wisdom tooth extraction Hx of section Family History Paternal Aunt Thyroid cancer Non-Hodgkin lymphoma Paternal Grandmother Bladder cancer Social History Household Members: Children Housing: House Are you a primary animal caretaker supervisor to a significant other at home: No Do you presently have visiting nurse or other home services: No Alcohol intake: former Comment: weekends Patient Tobacco Use Status: Never used Tobacco Substance Use Type: Marijuana Physical Exam Vital Signs: Last Vital Signs Temp 97.4 F 07/27/24 11:03 Pulse 57 07/27/24 11:03 BP 142/80 H 07/27/24 11:03 Pulse Ox 100 07/27/24 11:03 Oxygen Delivery Method Room Air 07/27/24 11:03 BMI result Body Mass Index 29.6 Const General: healthy appearing and no acute distress Resp Effort & Inspection: normal respiratory effort Auscultation: clear to auscultation bilaterally Cardio Rate: regular rate Rhythm: regular rhythm GI Auscultation: normal bowel sounds Extrem General: Yes normal to inspection Assessment & Plan Assessment & Plan (1) S/P laparoscopic sleeve gastrectomy: Code(s): Z98.84 - Bariatric surgery status Category: Surgical Plan: Patient does not wish to lose more weight at this time. She is doing body weight exercises and walking although not tracking her calories, distance or time. She certainly may continue her current plans as she has them outlined. Additionally, should she wish to lose more weight, I would suggest a more formalized exercise program, tracking calories with a goal of burning 300 per day or 2000 per week. We will check six-month postop labs. We will have her return to the office in a proximally 3 months Orders: Orders Hemoglobin A1c Today K76.0 - Fatty (change of) liver, not elsewhere classified, Z98.84 - Bariatric surgery status Complete Blood Count Auto Diff Today K76.0 - Fatty (change of) liver, not elsewhere classified, Z98.84 - Bariatric surgery status Comprehensive Met. Panel Today K76.0 - Fatty (change of) liver, not elsewhere classified, Z98.84 - Bariatric surgery status Vitamin B12 and Folate Today K76.0 - Fatty (change of) liver, not elsewhere classified, Z98.84 - Bariatric surgery status Zinc Today K76.0 - Fatty (change of) liver, not elsewhere classified, Z98.84 - Bariatric surgery status Vitamin B1 Today K76.0 - Fatty (change of) liver, not elsewhere classified, Z98.84 - Bariatric surgery status TSH reflex Free T4 Today K76.0 - Fatty (change of) liver, not elsewhere classified, Z98.84 - Bariatric surgery status Vitamin D 25-OH Total Today K76.0 - Fatty (change of) liver, not elsewhere classified, Z98.84 - Bariatric surgery status Insulin Today K76.0 - Fatty (change of) liver, not elsewhere classified, Z98.84 - Bariatric surgery status Lipid Panel Today K76.0 - Fatty (change of) liver, not elsewhere classified, Z98.84 - Bariatric surgery status IRON PROFILE Today K76.0 - Fatty (change of) liver, not elsewhere classified, Z98.84 - Bariatric surgery status C Reactive Protein Today K76.0 - Fatty (change of) liver, not elsewhere classified, Z98.84 - Bariatric surgery status Vitamin A Today K76.0 - Fatty (change of) liver, not elsewhere classified, Z98.84 - Bariatric surgery status Ferritin Today K76.0 - Fatty (change of) liver, not elsewhere classified, Z98.84 - Bariatric surgery status
[2024-07-27 11:03] VITALS: BP 142/80; PULSE 57; TEMP 36.3; O2SAT 100; BMI 29.6
== END 2024-07-27 11:30 | disposition home or self-care (01) ==
LOC: HO.HBS 10:48
PROVIDERS: PCP Internal Medicine; Visit Provider Physician Assistant Surgical
DX: E66.3 Overweight (principal); Z68.29 Body mass index [BMI] 29.0-29.9, adult; Z90.3 Acquired absence of stomach [part of]; Z98.84 Bariatric surgery status
CPT/HCPCS: 99213

== ENCOUNTER 2024-10-19 11:00 | Outpatient (AMB) | payer OTHER, SELFPAY ==
--- NOTE | 2024-10-19 08:38 | A.OFFVIS_ITS ---
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 Presents for 9 month post op visit. Weight today is 171 pounds, with a BMI of 29.4. There has been a 68.2 pound weight loss,(initial weight 240.4 pounds) since starting the program on 09/13/2023 reflecting a 28.3 % total body weight loss and a weight loss of 41.4 pounds since surgery (operative weight 213.6 pounds) reflecting a 19.3 % TBWL since surgery. No complaints of nausea, emesis, abdominal pain or reflux. Reports infrequent but normal bowel movements every 2-3 days and uses stool softeners regularly. Taking step up bariatric MVI nicole weiner. She states she has achieved her goal weight. States that she is comfortable where she is but may want to start to lose more weight. States she will start using her elliptical in her home. recommended meal plan includes: Fair life 26 g ready to drink shake or premier protein RTD shake Meal 4 forks protein and 4-5 forks vegetables Repeat meal She may have a quarter cup fresh berries if necessary. drinking 45-60 oz fluids ? Exercise routine includes: walking outside, 2-3 days per week, not tracking calories burned, time or distance. Bodyweight exercises PFSH Medical History Morbid obesity GERD (gastroesophageal reflux disease) COVID-19 Tachycardia Murmur Chest pain Elevated cholesterol Fatty liver BMI 37.0-37.9, adult Surgical History S/P laparoscopic sleeve gastrectomy History of esophagogastroduodenoscopy (EGD) Hx of wisdom tooth extraction Hx of section Family History Paternal Aunt Thyroid cancer Non-Hodgkin lymphoma Paternal Grandmother Bladder cancer Social History Household Members: Children Housing: House Are you a primary youth care professional to a significant other at home: No Do you presently have visiting nurse or other home services: No Alcohol intake: former Comment: weekends Patient Tobacco Use Status: Never used Tobacco Substance Use Type: Marijuana Physical Exam Vital Signs: BMI result Body Mass Index 29.3 Telehealth Telehealth Telehealth Platform: Telephone Location of provider rendering services: practice address Location of patient: address on file Patient Identification confirmed using: Name, : Yes Telehealth method: voice only Patient verbally consented to treatment: Yes Patient verbally consented to billing insurance company: Yes Patient informed of any privacy concerns related to visit: Yes Minutes spent on Phone/Video with Pt.: 15 Assessment & Plan Assessment & Plan (1) S/P laparoscopic sleeve gastrectomy: Code(s): Z98.84 - Bariatric surgery status Category: Surgical Plan: Previously, patient did not want to lose any further weight. She is now considering this. We discussed following the meal plan exactly and following an exercise plan consistently. Goal of burning 300 calories per day, 7 days per week or 2000 calories per week. She states that with the upcoming winter months, she is going to resume her elliptical routine that she has in her home. We will have her return to the office in January for her 1 year follow-up appointment, check labs at that time. Encouraged to continue to communicate by text weekly and if any questions or concerns
[2024-10-19 08:39] VITALS: BMI 29.3
--- OUTSIDE RECORDS SUMMARY | 2024-10-19 12:21 | XMS_ITS | Clinical Summary ---
Author Organization [facility] [employer] [facility] [employer] Address [address] [place] [address] Care Team Providers Care Maintenance Mechanic Supervisor Name Role Phone Kayleigh Mesa MD Primary Care Provi janes Allergies No known active allergies Medications phentermine (ADIPEX-P) 37.5 mg tablet TAKE 1 TABLET BY MOUTH EVERY DAY IN THE MORNING AT LEAST 1 HOUR AFTER A MEAL 07/31/2021 Active Social History Tobacco Use Types Packs/Day Years Used Date Smoking Tobacco: Never Smokeless Tobacco: Never PHQ-2 Answer Date Recorded PHQ-2 Total Score 0 08/16/2024 Comments No Sex and Gender Information Value Date Recorded Sex Assigned at Not on file Legal Sex Female 5:25 PM EDT Gender Identity Not on file Sexual Orientation Not on file Last Filed Vital Signs Vital Sign Reading Time Taken Comments Blood Pressure 128/86 05/12/2022 3:20 PM EDT Pulse 87 05/12/2022 3:20 PM EDT Temperature 36.1 C (96.9 F) 05/12/2022 3:20 PM EDT Respiratory Rate 18 05/12/2022 3:20 PM EDT [...] Adults 18 yrs or above (or HM Modifier)([facility]) 1996 Hepatitis C Virus Infection in Adolescents and Adults: Screening (or Modifier) ([facility]) 1996 SDOH Screening Reminder: Venessa worthy for all adults ([facility]) 1996 Tobacco Smoking Cessation: i n Adults excluding Women: Behavioral and Pharmacotherapy Interventions ([facility]) 1996 Cervical Cancer Screenin 1-65 yrs of age (or Modifier) 11/15/1999 Cervical Cancer Screening: P ap every 3 yrs pts age 21-65 11/15/1999 Cervical Cancer: Pap Screeni ng with Modifier timing ([facility]) 11/15/1999 Cervical Cancer: hrHPV alone or with cotesting Pap for Pts 30-65yrs screening every 5yrs ([facility]) 11/15/1999 Colorectal Cancer Screening 45 -75 Yrs (or HM Modifier) 11/15/2023 Colorectal Cancer: FLEXIBLE SIGMOIDOSCOPY Screening every 5 yrs 11/15/2023 Colorectal Cancer: Fecal Immunochemical Test (FIT) Annually [facility] 11/15/2023 Colorectal Cancer: High-sens itivity gFOBT Screening Annually [facility] 11/15/2023 Colorectal Cancer: Stool Col oguard Screening every 3 yrs 11/15/2023 Colorectal Cancer:CT Colonog jazmin Screening every 5 yrs 11/15/2023 Flu Vaccination: Yearly for ages 18mos through 64 years (or Modifier)([facility]) 09/14/2024 DTaP/Tdap/Td Vaccines ([facility]) (2 - Td or Tdap) 08/11/2026 08/11/2016 Zoster/Shingles Vaccine Seri es Screening: Adults aged 18+ yrs (or HM Modifiers)([facility]) (1 of 2) 2028 Pneumococcal Vaccination Scr eening: Pts 0-19 & 19-49 yrs of age ([facility]) Aged Out No longer eligible b ased on patient's age to complete this topic Medical Devices Not on file Insurance [facility] Care Teams Maintenance Mechanic Supervisor Relationship Specialty Start Date End Date Kayleigh Mesa MD [address] [place] [address] PCP - General Internal Medicine 08/14/21
== END 2024-10-19 11:29 | disposition home or self-care (01) ==
LOC: HO.HBS 11:18
PROVIDERS: PCP Internal Medicine; Visit Provider Physician Assistant Surgical
DX: E66.3 Overweight (principal); Z68.29 Body mass index [BMI] 29.0-29.9, adult; Z90.3 Acquired absence of stomach [part of]; Z98.84 Bariatric surgery status
CPT/HCPCS: 98013

== ENCOUNTER → 2024-10-19 11:00 | Outpatient (BNVA) | payer OTHER, SELFPAY | PROVIDERS: PCP Internal Medicine; Visit Provider Physician Assistant Surgical | DX: E66.3 Overweight (principal); Z98.84 Bariatric surgery status; Z68.29 Body mass index [BMI] 29.0-29.9, adult; Z13.89 Encounter for screening for other disorder ==